=== PATIENT | female | born 1970 | race Caucasian/White ===

== ENCOUNTER → 2020-03-26 09:39 | Outpatient (BNVA) | payer OTHER, SELFPAY | PROVIDERS: PCP Internal Medicine; Visit Provider Physician Assistant | DX: K57.30 Diverticulosis of large intestine without perforation or abscess without bleeding (principal); K59.09 Other constipation | CPT/HCPCS: Q3014 ==

== ENCOUNTER 2020-06-12 10:00 | Day surgery (SDC) | payer OTHER, SELFPAY ==
--- NOTE | 2020-06-11 13:03 | P.CONAN_ITS ---
Documented by User: Erica Santizo 06/11/20 13:04 HPI - Anesthesia Eval Consult details Narrative: 49yo F for Colonoscopy FORMERLY [facility], [facility] Active Problems Active Problems: All Active Problems (Updated 03/26/20 @ 11:27 by Neeta Wyatt PA-C) Chronic constipation (Acute) Diverticulosis large intestine w/o perforation or abscess w/o bleeding (Acute) Past Medical History Medical History (Updated 06/12/20 @ 11:03 by Olimpia Collins) Asthma Chronic constipation Diverticulosis large intestine w/o perforation or abscess w/o bleeding Family History Family History Father No problems noted. Mother Family history of high blood pressure Hx of type 1 diabetes mellitus Hx of diverticulitis of colon Surgical History Surgical History History of appendectomy History of History of hysterectomy Hx of abdominoplasty Hx of cholecystectomy Hx of endoscopy Social History Social History Alcohol intake: current Alcohol intake frequency: holidays/special occasions only Smoking Status: Never smoker Use of substances other than those prescribed or required for medical reasons: No Advance Directives: No Advance Directives Information Provided: Yes Advance Directives on File: No Meds Allergies Allergy/AdvReac Type Severity Reaction Status Date / Time sensitivity to narcotics Allergy Unknown Uncoded 11/19/19 00:00 NARCOTICS AdvReac Unknown NAUSEA,VOMI Uncoded 12/13/19 19:35 TING Home Medications Medication Instructions Recorded Confirmed Last Taken Type cholecalciferol (vitamin D3) 100 100 mcg PO DAILY 03/26/20 Unknown History mcg (4,000 unit) capsule Exam Exam Date and Time: June 11, 2020 1303 Assessment and Plan Assessment Anesthesia Assessment: Chart Reviewed Documented by User: Olimpia Collins 06/12/20 11:03 FOR[facility]LY [facility], [facility] Past Medical History Medical History (Updated 06/12/20 @ 11:03 by Olimpia Collins) Asthma Chronic constipation Diverticulosis large intestine w/o perforation or abscess w/o bleeding Family History Family History Father No problems noted. Mother Family history of high blood pressure Hx of type 1 diabetes mellitus Hx of diverticulitis of colon Family history of problems with anesthesia: No Surgical History Surgical History History of appendectomy History of History of hysterectomy Hx of abdominoplasty Hx of cholecystectomy Hx of endoscopy History of Problems with Anesthesia: Yes (PONV) Social History Social History Alcohol intake: current Alcohol intake frequency: holidays/special occasions only Smoking Status: Never smoker Use of substances other than those prescribed or required for medical reasons: No Advance Directives: No Advance Directives Information Provided: Yes Advance Directives on File: No Meds Allergies Allergy/AdvReac Type Severity Reaction Status Date / Time sensitivity to narcotics Allergy Unknown Uncoded 11/19/19 00:00 NARCOTICS AdvReac Unknown NAUSEA,VOMI Uncoded 12/13/19 19:35 TING Home Medications Medication Instructions Recorded Confirmed Last Taken Type cholecalciferol (vitamin D3) 100 100 mcg PO DAILY 03/26/20 Unknown History mcg (4,000 unit) capsule Exam Height,Weight and Vital Signs: Vital Signs Temp Pulse Resp BP Pulse Ox 06/12/20 10:26 98.0 F 87 18 129/81 97 Airway Mallampati Class: II TM Dist: >3cm Neck ROM: Full Partial: Lower Heart: RRR Lungs: CTAB Assessment and Plan Assessment Anesthesia Assessment: Anesthesia Plan Discussed and Chart Reviewed Final Anesthetic Review NPO: Yes ASA Class: II Final Preanesthetic Review: No Changes in Pt Med Stat, Meds/Allgs Chart Reviewed, Consent Obtained/Reviewed and Anes Risks/Benef Reviewed Patient Risk: Low Procedure Risk: Low Assessment/Block/Sedation in SS: Assess/Block/Sedation-SS Anesthetic Plan Anesthetic Plan: MAC: Disposition: Standard PACU
[2020-06-12 10:13] VITALS: BMI 37.0
[2020-06-12 10:26] VITALS: BP 129/81; PULSE 87; RESP 18; TEMP 36.7; O2SAT 97
[2020-06-12] MEDS: Lactated Ringers 1,000 ML 100 ML IVCONT (10:45)
--- NOTE | 2020-06-12 11:06 | MHC.SHP ---
Pre-Procedural Eval Section B Chief Complaint: diverticulosis Relevant Family History (Specify if Yes): No Relevant Social History: None Present Medications: see Short Stay Collaborative assessment Medical History: Significant History (Asthma Chronic constipation Diverticulosis large intestine w/o perforation or abscess w/o bleeding) History of Previous Operations: Relevant previous surgery/procedure and date(s) (History of appendectomy History of History of hysterectomy Hx of abdominoplasty Hx of cholecystectomy Hx of endoscopy) Allergies: Allergies Allergy/AdvReac Type Severity Reaction Status Date / Time sensitivity to narcotics Allergy Unknown Uncoded 11/19/19 00:00 NARCOTICS AdvReac Unknown NAUSEA,VOMI Uncoded 12/13/19 19:35 TING Review of Systems Sugical H&P ROS: Negative: Constitution, Cardiovascular, Respiratory, Neurological, Psychiatric, Hem-Onc, Allergic/Immunologic, Gastrointestinal, Genitourinary, Musculoskeletal, Integumentary, Endocrine and Eyes/Ears/Nose/Throat Exam Surgical H&P Exam: Normal: HEENT, Normal: Heart, Normal: Lungs, Normal: Extremities, Normal: Abdomen, Normal: Skin and Normal: Neurological Plan Diagnosis/Plan: Unchanged I have reviewed the history and physical and performed a pertinent physical examination on my patient. No changes have occurred unless specified.
--- NOTE | 2020-06-12 11:51 | PM.OP ---
Brief Operative Note Date of Service: 06/12/20 Pre-op diagnosis: constipation Post-op diagnosis: same Procedure: see op note Surgeon: Jaswant Santiago MD Anesthesia: MAC Estimated blood loss (mL): 0 Condition: stable Disposition: PACU
--- NOTE | 2020-06-12 11:51 | W.PM.OPN ---
Operative Note Operative Note Date of Service: 06/12/20 Narrative: Operative Information Procedure Description: Colonoscopy COLONOSCOPY Instrument: Olympus variable stiffness pediatric scope 190L Colonoscopy Monitoring: Vital signs and clinical assessment, continuous EKG monitoring, Pulse oximetry, Carbon Dioxide monitoring and blood pressure monitoring were done throughout the procedure. Colon withdrawal time was 12 minutes. Procedure: The patient was placed in the left lateral decubitis position and pre-procedure medications were administered. After a digital rectal examination of the ano-rectum, the video colonoscope was inserted into the rectum and advanced through the colon to the cecum/TI. The colonoscope was slowly withdrawn in a retrograde panoramic fashion and the colon mucosa was carefully examined including a retroflexed view of the rectum. Findings and interventions are described below. Procedure Difficulty: easy Findings: Terminal Ileum-normal Cecum:normal Ascending Colon: normal Transverse Colon -normal Descending Colon:normal Sigmoid Colon: scattered small diverticula noted Rectum: Retroflexion with small internal hemorrhoids, grade I, x 2 rectal biopsy samples taken using cold snare by creating pseudopolyp and forceps for staining for ganglion cells Anorectum - normal Colon preparation: [place] Bowel Preparation Scale Right colon; 3 Transverse colon: 3 Left colon; 3 (0 = Unprepared colon segment with mucosa not seen due to solid stool that cannot be cleared. 1 = Portion of mucosa of the colon segment seen, but other areas of the colon segment not well seen due to staining, residual stool and/or opaque liquid. 2 = Minor amount of residual staining, small fragments of stool and/or opaque liquid, but mucosa of colon segment seen well. 3 = Entire mucosa of colon segment seen well with no residual staining, small fragments of stool or opaque liquid) Impression and Post Procedure Diagnosis: internal hemorrhoids diverticular disease Plan: High fiber diet leaflet Avoid straining at stool, epsom salts and sitz bath, anusol supps or cream as needed Repeat Colonoscopy in 10 years or earlier if clinically indicated Above findings were reviewed with the patient and relevant handouts were provided if indicated.
[2020-06-12 11:56] VITALS: BP 98/62; PULSE 81; RESP 16; TEMP 36.4; O2SAT 99
[2020-06-12 12:12] VITALS: BP 120/78; PULSE 76; RESP 17; O2SAT 98
[2020-06-12 12:15] VITALS: BP 120/78; PULSE 71; RESP 17; TEMP 36.4; O2SAT 99
== END 2020-06-12 13:19 | disposition home or self-care (01) ==
PROVIDERS: PCP Internal Medicine; Visit Provider Internal Medicine Gastroenterology
PROC: 0DJD8ZZ Inspection of Lower Intestinal Tract, Via Natural or Artificial Opening Endoscopic (ICD-10-PCS; CPT 45378; principal; 2020-06-12 11:10)
DX: K59.09 Other constipation (principal); K57.30 Diverticulosis of large intestine without perforation or abscess without bleeding; K64.0 First degree hemorrhoids; J45.909 Unspecified asthma, uncomplicated; Z79.899 Other long term (current) drug therapy; Z90.49 Acquired absence of other specified parts of digestive tract
CPT/HCPCS: 45385; 45380; 88305; 88342; J2405

== ENCOUNTER → 2020-06-26 10:07 | Outpatient (BNVA) | payer OTHER, SELFPAY | PROVIDERS: PCP Internal Medicine; Visit Provider Physician Assistant | DX: K59.09 Other constipation (principal) | CPT/HCPCS: Q3014 ==

== ENCOUNTER → 2022-01-14 07:19 | Outpatient (BNVA) | payer OTHER, SELFPAY | PROVIDERS: PCP Internal Medicine; Referring Provider Internal Medicine; Visit Provider Physician Assistant | DX: K59.09 Other constipation (principal) | CPT/HCPCS: 99212 ==

== ENCOUNTER 2023-01-18 08:26 | Outpatient (AMB) | payer OTHER, SELFPAY ==
--- NOTE | 2023-01-18 08:30 | MHC.OFFVIS ---
Intake Vital Signs 01/18/23 08:44 Height 5 ft 4 in Weight 213 lb BMI 36.6 BP 126/68 Blood Pressure Location Lt brachial Position Sitting Pulse 82 Intake Visit Reasons: h pylori bacteria Intake Note: Patient follow p for H pylori bacteria. Patient cc: abdominal pain and discomfort with everything that she ate, gassy, acid reflex with burning sensation, swallowing problems and constipation. Administrative Support Specialist Required: No Accompanied by: Self / Same As Patient Allergies sensitivity to narcotics Allergy (Intermediate, Uncoded 06/26/20 10:08) Vomiting NARCOTICS Adverse Reaction (Unknown, Uncoded 12/13/19 19:35) NAUSEA,VOMITING Medication List - Last Reconciled 01/18/23 by Neeta Wyatt PA-C bisacodyl (Dulcolax (bisacodyl)) 10 mg [place] DAILY PRN calcium polycarbophil (Fiber Laxative (calcium polycarbophil)) 1,250 mg (2 x 625 mg) PO DAILY 30 days cholecalciferol (vitamin D3) 100 mcg PO DAILY docusate sodium (Colace) 200 mg (2 x 100 mg) PO BEDTIME famotidine 40 mg PO DAILY PRN methylcellulose (laxative) (Citrucel) 500 mg PO TID pantoprazole 40 mg PO DAILY polyethylene glycol 3350 (Miralax) 17 grams PO DAILY sennosides (senna) 8.6 mg PO DAILY simethicone (Gas Relief (simethicone)) 125 mg PO TID-QID PRN HPI HPI Comments History of Present Illness Details 52-year-old female history of H pylori and treated years ago at [facility]-. 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.- Review of Systems Const All systems reviewed & are unremarkable except as noted in HPI and below Card Denies chest pain and Denies dyspnea Resp Denies dyspnea GI Denies abdominal pain, Denies hematochezia, Reports constipation, Reports heartburn, Denies nausea and Denies vomiting Physical Exam Vital Signs: Last Vital Signs Pulse 82 01/18/23 08:44 BP 126/68 01/18/23 08:44 BMI result Body Mass Index 36.6 Const General: cooperative, healthy appearing, comfortable and no acute distress Orientation/consciousness: patient oriented x3 Limitations: no limitations Eyes Sclerae: sclerae normal Resp Effort & Inspection: normal respiratory effort and able to speak in complete sentences Auscultation: clear to auscultation bilaterally, no rales, no rhonchi and no wheezes Cardio Rate: regular rate Rhythm: regular rhythm Heart sounds: S1 normal heart sound present and S2 normal heart sound present GI Palpation (GI): Soft to palpation and nontender Auscultation: normal bowel sounds Skin General skin exam: no rashes or lesions noted Neuro General: patient oriented x3 Extrem General: Yes full ROM Psych Appearance: grossly normal and well kempt Mental Status: mental status grossly normal Speech and movement: Normal speech and movement present and Clear speech present Affect: normal affect Attitude: cooperative Thought content: Normal thought content present Results Reviewed Results Reviewed: Attending Dr: Jaswant Santiago MD cc: Jaswant Santiago MD; SOCORRO STEWART MD~ Operative Note Operative Note Date of Service: 06/12/20 Narrative: Operative Information Procedure Description: Colonoscopy COLONOSCOPY Instrument: Olympus variable stiffness pediatric scope 190L Colonoscopy Monitoring: Vital signs and clinical assessment, continuous EKG monitoring, Pulse oximetry, Carbon Dioxide monitoring and blood pressure monitoring were done throughout the procedure. Colon withdrawal time was 12 minutes. Procedure: The patient was placed in the left lateral decubitis position and pre-procedure medications were administered. After a digital rectal examination of the ano-rectum, the video colonoscope was inserted into the rectum and advanced through the colon to the cecum/TI. The colonoscope was slowly withdrawn in a retrograde panoramic fashion and the colon mucosa was carefully examined including a retroflexed view of the rectum. Findings and interventions are described below. Procedure Difficulty: easy Findings: Terminal Ileum-normal Cecum:normal Ascending Colon: normal Transverse Colon -normal Descending Colon:normal Sigmoid Colon: scattered small diverticula noted Rectum: Retroflexion with small internal hemorrhoids, grade I, x 2 rectal biopsy samples taken using cold snare by creating pseudopolyp and forceps for staining for ganglion cells Anorectum Impression and Post Procedure Diagnosis: internal hemorrhoids diverticular disease Plan: High fiber diet leaflet Avoid straining at stool, epsom salts and sitz bath, anusol supps or cream as needed Repeat Colonoscopy in 10 years or earlier if clinically indicated Assessment & Plan Assessment & Plan (1) Acid reflux: Comment: Reviewed EGD [id number] r/o HP-famotidine 40 mg daily as well as Tums-discontinue famotidine 2 days prior to H pylori test Code(s): K21.9 - Gastro-esophageal reflux disease without esophagitis (2) Chronic constipation: Comment: Maintain consistent bowel regimen, high-fiber diet, well hydrated Reviewed colonoscopy from 2021-no polyps Code(s): K59.09 - Other constipation (3) Helicobacter pylori (H. 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[employer] Code(s): A04.8 - Other specified bacterial intestinal infections Plan: H pylori stool antigen-2 weeks- await results, if positive will treat Plan r/o HP-famotidine 40 mg daily as well as Tums-discontinue famotidine 2 days prior to H pylori test Orders: Orders H pylori Ag Stool Today A04.8 - Other specified bacterial intestinal infections Medications: New calcium polycarbophil (Fiber Laxative (calcium polycarbophil)) 1,250 mg (2 x 625 mg) PO DAILY 30 days 60 tabs 3RF polyethylene glycol 3350 (Miralax) 17 grams PO DAILY 30 days 510 grams 6RF famotidine D/C 2 days prior to H.pylori test 40 mg PO DAILY PRN 30 tabs 5RF heart burn bisacodyl (Dulcolax (bisacodyl)) 10 mg MT DAILY PRN 20 ea 0RF constipation Patient Instructions: Reviewed EGD [id number] r/o HP-meanwhile she will take famotidine 40 mg daily as well as Tums-for 2 weeks then submit sample for H pylori discontinue famotidine 2 days prior to H pylori test-with if positive will treat Reflux precautions reviewed-avoid culprits, remain upright 2-3 hours after eating especially evening male-famotidine and Tums until H pylori testing submit chronic constipation, consistent bowel regimen maintain high-fiber diet fiber supplement Opportunity for questions, we will see her back in follow-up for progress. Coding Level of Care Code Est Pt Level 4 (98480) Diagnoses Acid reflux K21.9 Chronic constipation K59.09 Helicobacter pylori (H. pylori) A04.8 Time Spent (min) 35
[2023-01-18 08:44] VITALS: BP 126/68; PULSE 82; BMI 36.6
== END 2023-01-18 09:40 | disposition home or self-care (01) ==
PROVIDERS: PCP Internal Medicine; Visit Provider Physician Assistant
DX: K21.9 Gastro-esophageal reflux disease without esophagitis (principal); K59.09 Other constipation; A04.8 Other specified bacterial intestinal infections
CPT/HCPCS: 99214

== ENCOUNTER → 2023-01-18 08:26 | Outpatient (BNVA) | payer OTHER, SELFPAY | PROVIDERS: PCP Internal Medicine; Visit Provider Physician Assistant | DX: A04.8 Other specified bacterial intestinal infections (principal); K59.09 Other constipation; K21.9 Gastro-esophageal reflux disease without esophagitis | CPT/HCPCS: 99212 ==

== ENCOUNTER 2023-01-31 12:35 | Outpatient (REF) | payer OTHER, SELFPAY | END 2023-01-31 12:36 | disposition home or self-care (01) | LOC: HO.LNP 12:35 | PROVIDERS: Visit Provider Physician Assistant | DX: A04.8 Other specified bacterial intestinal infections (principal) | CPT/HCPCS: 87338 ==

== ENCOUNTER 2023-02-09 08:24 | Outpatient (AMB) | payer OTHER, SELFPAY ==
--- NOTE | 2023-02-09 08:31 | A.OFFVIS_ITS ---
Intake Vital Signs 02/09/23 08:39 Height 5 ft 4 in Weight 213 lb BMI 36.6 BP 112/73 Blood Pressure Location Lt brachial Position Sitting Pulse 89 Intake Visit Reasons: 1 month follow up Intake Note: Patient follow up for abdominal discomfort. Patient cc: abdominal discomfort, gassy with bad odor but with obstruction, constipation with some blood on and off, and some swallowing problems. Souvenir And Novelty Maker Required: No Accompanied by: Self / Same As Patient Allergies sensitivity to narcotics Allergy (Intermediate, Uncoded 06/26/20 10:08) Vomiting NARCOTICS Adverse Reaction (Unknown, Uncoded 12/13/19 19:35) NAUSEA,VOMITING Medication List - Last Reconciled 02/09/23 by Neeta Wyatt PA-C bisacodyl (Dulcolax (bisacodyl)) 10 mg [place] DAILY PRN bisacodyl (Dulcolax (bisacodyl)) 10 mg [place] DAILY PRN calcium polycarbophil (Fiber Laxative (calcium polycarbophil)) 1,250 mg (2 x 625 mg) PO DAILY 30 days cholecalciferol (vitamin D3) 100 mcg PO DAILY docusate sodium (Colace) 200 mg (2 x 100 mg) PO BEDTIME methylcellulose (laxative) (Citrucel) 500 mg PO TID pantoprazole 40 mg PO DAILY polyethylene glycol 3350 (Miralax) 17 grams PO DAILY polyethylene glycol 3350 (Miralax) 17 grams PO DAILY 30 days sennosides (senna) 8.6 mg PO DAILY simethicone (Gas Relief (simethicone)) 125 mg PO TID-QID PRN HPI HPI Comments History of Present Illness0 Details With year old female follows up with acid reflux she eats late at night, has gained weight= she is frustrated however acid reflux seems worse at night after eating late she is considering in diet changes she has occassional hemorrhoids- if she strains- following regimen in much improved No nausea, vomiting, hematemesis, hematochezia fever chills PFSH Medical History (Updated 02/09/23 @ 13:40 by Neeta Wyatt PA-C) Asthma Chronic constipation Diverticulosis large intestine w/o perforation or abscess w/o bleeding Surgical History Hx of abdominoplasty History of hysterectomy Hx of cholecystectomy History of appendectomy History of Hx of endoscopy Family History Father No problems noted. 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.- Review of Systems Const All systems reviewed & are unremarkable except as noted in HPI and below Card Denies chest pain and Denies dyspnea Resp Denies dyspnea GI Reports constipation (improved with regimen), Reports heartburn (wt gain, ), Denies loose stools and Denies nausea Physical Exam Vital Signs: Last Vital Signs Pulse 89 02/09/23 08:39 BP 112/73 02/09/23 08:39 BMI result Body Mass Index 36.6 Const General: cooperative, healthy appearing, comfortable and no acute distress Orientation/consciousness: patient oriented x3 Limitations: no limitations Eyes Sclerae: sclerae normal Resp Effort & Inspection: normal respiratory effort and able to speak in complete sentences Cardio Rate: regular rate Neuro General: patient oriented x3 Extrem General: Yes full ROM Psych Appearance: grossly normal and well kempt Mental Status: mental status grossly normal Speech and movement: Normal speech and movement present Affect: normal affect Attitude: cooperative Thought process: Normal thought process present Thought content: Normal thought content present Results Reviewed Results Reviewed: 06/12/20 Dr Santiago Findings: Terminal Ileum-normal Cecum:normal Ascending Colon: normal Transverse Colon -normal Descending Colon:normal Sigmoid Colon: scattered small diverticula noted Rectum: Retroflexion with small internal hemorrhoids, grade I, x 2 rectal biopsy samples taken using cold snare by creating pseudopolyp and forceps for staining for ganglion cells Anorectum Impression and Post Procedure Diagnosis: internal hemorrhoids diverticular disease Plan: High fiber diet leaflet Avoid straining at stool, epsom salts and sitz bath, anusol supps or cream as needed Repeat Colonoscopy in 10 years or earlier if clinically indicated Assessment & Plan Assessment & Plan (1) Chronic constipation: Comment: Maintain consistent bowel regimen, high-fiber diet, well hydrated Reviewed colonoscopy from 2020-hemorrhoids, divertic, no polyps Code(s): K59.09 - Other constipation Plan: Reviewed colonoscopy report (2) Acid reflux: Comment: Reviewed EGD from 01/2023-HP - neg Code(s): K21.9 - Gastro-esophageal reflux disease without esophagitis (3) Hemorrhoids: Comment: Offer surgical refer Code(s): K64.9 - Unspecified hemorrhoids Plan: Avoid straining hydrocortisone Plan reflux precautions reviewed cont ppi avoid culprit Medications: New hydrocortisone 2.5% (Proctosol HC) 1 appl [place] BEDTIME PRN 30 grams 3RF hemorrhoids Patient Instructions: reflux precautions reviewed Dietary lifestyle modification would be beneficial cont ppi Avoid culprits Maintain high-fiber diet Avoid straining with hemorrhoid Hydrocortisone cream With declined surgical consult, she will call if she reconsiders Coding Level of Care Code Est Pt Level 3 (71446) Diagnoses Chronic constipation K59.09 Acid reflux K21.9 Hemorrhoids K64.9 Time Spent (min) 30
[2023-02-09 08:39] VITALS: BP 112/73; PULSE 89; BMI 36.6
== END 2023-02-09 09:51 | disposition home or self-care (01) ==
PROVIDERS: PCP Internal Medicine; Visit Provider Physician Assistant
DX: K59.09 Other constipation (principal); K21.9 Gastro-esophageal reflux disease without esophagitis; K64.9 Unspecified hemorrhoids
CPT/HCPCS: 99213

== ENCOUNTER → 2023-02-09 08:24 | Outpatient (BNVA) | payer OTHER, SELFPAY | PROVIDERS: PCP Internal Medicine; Visit Provider Physician Assistant | DX: K57.30 Diverticulosis of large intestine without perforation or abscess without bleeding (principal); K59.09 Other constipation; K64.9 Unspecified hemorrhoids; K21.9 Gastro-esophageal reflux disease without esophagitis; Z90.49 Acquired absence of other specified parts of digestive tract | CPT/HCPCS: 99212 ==

== ENCOUNTER 2023-06-02 08:19 | Outpatient (AMB) | payer OTHER, SELFPAY ==
[2023-06-02 08:27] VITALS: BMI 36.6
--- NOTE | 2023-06-02 08:27 | MHC.OFFVIS ---
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 The patient states that she underwent right shoulder arthroscopic surgery approximately 5 years ago. She re-injured her shoulder 1 year ago while lifting heavy object. Since that time she has had difficulty lifting her right hand above shoulder height. She has had multiple cortisone injections in the past which gave her temporary relief. She has also done physical therapy which aggravated her pain. She has tried Tylenol and anti-inflammatory medicines which gave her minimal relief. Allergies sensitivity to narcotics Allergy (Intermediate, Uncoded 06/26/20 10:08) Vomiting NARCOTICS Adverse Reaction (Unknown, Uncoded 12/13/19 19:35) NAUSEA,VOMITING Medication List - Last Reconciled 06/02/23 by Alirio Guo MD bisacodyl (Dulcolax (bisacodyl)) 10 mg NC DAILY PRN calcium polycarbophil (Fiber Laxative (calcium polycarbophil)) 1,250 mg (2 x 625 mg) PO DAILY 30 days cholecalciferol (vitamin D3) 100 mcg PO DAILY docusate sodium (Colace) 200 mg (2 x 100 mg) PO BEDTIME hydrocortisone 2.5% (Proctosol HC) 1 appl NC BEDTIME PRN methylcellulose (laxative) (Citrucel) 500 mg PO TID pantoprazole 40 mg PO DAILY polyethylene glycol 3350 (Miralax) 17 grams PO DAILY sennosides (senna) 8.6 mg PO DAILY simethicone (Gas Relief (simethicone)) 125 mg PO TID-QID PRN PFSH Medical History (Updated 06/01/23 @ 09:42 by Alirio Guo MD) Asthma Chronic constipation Diverticulosis large intestine w/o perforation or abscess w/o bleeding Surgical History (Updated 06/02/23 @ 08:34 by Aniyah Jesus CMA) Hx of shoulder surgery (~02/25/20) Hx of abdominoplasty History of hysterectomy Hx of cholecystectomy History of appendectomy History of Hx of endoscopy Family History Father No problems noted. 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 Physical Exam Vital Signs: BMI result Body Mass Index 36.6 Const Other: Well-nourished well-developed very friendly female awake alert and oriented x3 in no acute distress Extrem Other: Bilateral upper extremity examination shows good capillary refill, no skin lesions noted, normal sensation light touch Right shoulder examination shows decreased active range of motion when compared to her left shoulder, 4+ out of 5 strength with supraspinatus testing, positive impingement signs, no instability Results Reviewed Results Reviewed: X-rays of the patient's right shoulder show mild acromioclavicular joint narrowing, a type 2 acromion, no acute bony abnormalities Assessment & Plan Assessment & Plan (1) Right shoulder pain: Code(s): M25.511 - Pain in right shoulder Plan Ms. Hannah presents with progressively worsening right shoulder pain and weakness possibly due to a full-thickness rotator cuff tear. Thus, I will send the patient for an MRI of her right shoulder for further evaluation. I will see her back once the MRI is completed to discuss the findings and treatment options. Feel free to call me at any time should questions regarding her orthopedic management arise. I spent 22 minutes in reviewing the patient's records and imaging studies, seeing the patient and documenting in the medical record. Orders: Orders XR shoulder RT min 2V Today M25.511 - Pain in right shoulder MR shoulder RT wo con Today M25.511 - Pain in right shoulder Coding Level of Care Code New Pt Level 2 (82782) Diagnoses Right shoulder pain M25.511
== END 2023-06-02 08:50 | disposition home or self-care (01) ==
PROVIDERS: PCP Internal Medicine; Visit Provider Orthopaedic Surgery
DX: M25.511 Pain in right shoulder (principal)
CPT/HCPCS: 99202

== ENCOUNTER 2023-06-02 09:31 | Outpatient (REF) | payer OTHER, SELFPAY ==
--- NOTE | ~2023-06-02 | XR_ITS ---
EXAMINATION: XR SHOULDER, RIGHT CLINICAL INFORMATION: Pain in right shoulder COMPARISON: None available. TECHNIQUE: AP neutral and scapular Y of the right shoulder. FINDINGS: The bones are intact. No fracture. Glenohumeral and acromioclavicular alignment is anatomic. The glenohumeral joint space is intact. There is marked widening of the acromioclavicular joint with question of prior resection of the distal clavicle. No abnormal soft tissue calcifications. XR/XR shoulder RT min 2V IMPRESSION: 1. No acute bony abnormality. 2. Marked widening of the acromioclavicular joint with question of prior resection of the distal clavicle.
== END 2023-06-02 09:32 | disposition home or self-care (01) ==
LOC: HO.HOSX 09:31
PROVIDERS: Visit Provider Orthopaedic Surgery
DX: M25.511 Pain in right shoulder (principal); Z79.899 Other long term (current) drug therapy
CPT/HCPCS: 73030; 99202

== ENCOUNTER 2023-06-14 11:42 | Outpatient (AMB) | payer OTHER, SELFPAY ==
[2023-06-14 11:43] VITALS: BMI 36.6
--- NOTE | 2023-06-14 11:43 | MHC.OFFVIS ---
Intake Vital Signs 06/14/23 11:43 Height 5 ft 4 in Weight 213 lb BMI 36.6 Intake Visit Reasons: OV- MRI REVIEW RT SHOULDER Intake Note: Celia is a 52 year old female who presents for her MRI review of her Right shoulder. The patient describes her pain as achy in nature. Most of the discomfort is along the lateral aspect of her shoulder. She has taken Tylenol which gives her mild relief. She continues with her home stretching program. Allergies sensitivity to narcotics Allergy (Intermediate, Uncoded 06/26/20 10:08) Vomiting NARCOTICS Adverse Reaction (Unknown, Uncoded 12/13/19 19:35) NAUSEA,VOMITING Medication List - Last Reconciled 06/14/23 by Alirio Guo MD bisacodyl (Dulcolax (bisacodyl)) 10 mg HI DAILY PRN calcium polycarbophil (Fiber Laxative (calcium polycarbophil)) 1,250 mg (2 x 625 mg) PO DAILY 30 days cholecalciferol (vitamin D3) 100 mcg PO DAILY docusate sodium (Colace) 200 mg (2 x 100 mg) PO BEDTIME hydrocortisone 2.5% (Proctosol HC) 1 appl HI BEDTIME PRN methylcellulose (laxative) (Citrucel) 500 mg PO TID pantoprazole 40 mg PO DAILY polyethylene glycol 3350 (Miralax) 17 grams PO DAILY sennosides (senna) 8.6 mg PO DAILY simethicone (Gas Relief (simethicone)) 125 mg PO TID-QID PRN PFSH Medical History Asthma Chronic constipation Diverticulosis large intestine w/o perforation or abscess w/o bleeding Surgical History Hx of shoulder surgery (~02/25/20) Hx of abdominoplasty History of hysterectomy Hx of cholecystectomy History of appendectomy History of Hx of endoscopy Family History Father No problems noted. 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 Physical Exam Vital Signs: BMI result Body Mass Index 36.6 Const Other: Well-nourished well-developed very friendly female awake alert and oriented x3 in no acute distress Extrem Other: Bilateral upper extremity examination shows good capillary refill, no skin lesions noted, normal sensation light touch Right shoulder examination shows almost full range of motion when compared to her left shoulder, 5/5 strength with supraspinatus testing, mild discomfort with resisted forward flexion, no instability Results Reviewed Results Reviewed: MRI of the patient's right shoulder shows signal change within the supraspinatus tendon most likely due to rotator cuff tendinosis, no rotator cuff tearing noted Assessment & Plan Assessment & Plan (1) Right shoulder pain: Code(s): M25.511 - Pain in right shoulder Plan Ms. Hannah presents with intermittent right shoulder discomfort due to rotator cuff tendinosis. I had a lengthy discussion with the patient regarding the treatment options. At this point the patient's symptoms are tolerable to her. She will continue with her activity modifications. She will follow up with me on an as-needed basis should her symptoms worsen in any way. Feel free to call me at any time should questions regarding her orthopedic management arise. I spent 19 minutes in reviewing the patient's records and imaging studies, seeing the patient and documenting in the medical record. Coding Level of Care Code Est Pt Level 2 (64937) Diagnoses Right shoulder pain M25.511
== END 2023-06-14 12:05 | disposition home or self-care (01) ==
PROVIDERS: PCP Internal Medicine; Visit Provider Orthopaedic Surgery
DX: S46.001A Unspecified injury of muscle(s) and tendon(s) of the rotator cuff of right shoulder, initial encounter (principal)
CPT/HCPCS: 99212

== ENCOUNTER → 2023-06-14 11:42 | Outpatient (BNVA) | payer OTHER, SELFPAY | PROVIDERS: PCP Internal Medicine; Visit Provider Orthopaedic Surgery | DX: M25.511 Pain in right shoulder (principal) | CPT/HCPCS: 99212 ==

== ENCOUNTER 2024-06-08 07:57 | Outpatient (AMB) | payer OTHER, SELFPAY ==
--- NOTE | 2024-06-08 07:59 | MHC.OFFVIS ---
Vital Signs 06/08/24 08:14 Height 5 ft 4 in Weight 220 lb 14.451 oz BMI 37.9 BP 158/72 H Blood Pressure Location Rt brachial Position Sitting Pulse 94 Pulse Source Pulse Oximeter Intake Visit Reasons: GERD/[facility] pt [facility] 01/2023 Intake Note: ESTABLISHED PATIENT for GERD mgmt, re-est care. [facility] 2022 w/ JM Chief Complaint; C/O GERD, nausea w/o vomiting, LUQ pain / GI upset. Pt denies any additional concerns at this time. Pt confirms taking pantoprazole qAM. Roadway Technician Required: No Accompanied by: Self / Same As Patient Allergies NARCOTICS Adverse Reaction (Unknown, Uncoded 06/08/24 08:00) NAUSEA,VOMITING HPI HPI GERD/[facility] pt [facility] 01/2023: Details: LAST VISIT: reflux precautions reviewed Dietary lifestyle modification would be beneficial cont ppi Avoid culprits Maintain high-fiber diet Avoid straining with hemorrhoid Hydrocortisone cream With declined surgical consult, she will call if she reconsiders TODAY'S VISIT: Patient is here today to reestablish care. Previously seen by Chichi Wyatt. Patient continues with abdominal bloating. Patient is taking Zepbound for weight loss. Patient reports epigastric pain postprandially. Only able to eat small amounts. Patient reports severe abdominal bloating and cramping. Acid reflux severe with acid coming up all the way to her throat. Patient reports lower abdominal cramping. Patient reports constipation, took MiraLax with minimal results. Small pebble like stool 1st and then diarrhea water like. No normal stool for a long time. Denies melena, hematochezia, unintentional weight loss or ribbon like stools. Denies any dyspepsia, dysphagia or odynophagia [facility] Medical History Asthma Chronic constipation Diverticulosis large intestine w/o perforation or abscess w/o bleeding Surgical History Hx of shoulder surgery (~02/25/20) Hx of abdominoplasty History of hysterectomy Hx of cholecystectomy History of appendectomy History of Hx of endoscopy Family History Father No problems noted. 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 Review of Systems Const Denies weight gain and Denies weight loss ENT Reports no additional complaints, Denies dysphagia and Denies odynophagia Card Reports no additional complaints Resp Reports no additional complaints GI Reports abdominal pain, Denies belching, Denies melena, Reports bloating, Denies change in bowel habits, Reports constipation, Denies dysphagia, Denies excessive flatus, Denies dyspepsia, Reports heartburn, Denies diarrhea, Reports loose stools, Denies nausea, Denies odynophagia and Denies vomiting Reports no additional complaints Musc Reports no additional complaints Neuro Reports no additional complaints Psych Reports no additional complaints Endo Reports no additional complaints Physical Exam Vital Signs: Last Vital Signs Pulse 94 06/08/24 08:14 BP 158/72 H 06/08/24 08:14 BMI result Body Mass Index 37.9 Const General: healthy appearing and no acute distress Nutritional Appearance: obese Orientation/consciousness: patient oriented x3 Resp Effort & Inspection: normal respiratory effort, able to speak in complete sentences, no tracheal deviation and symmetric chest movement Auscultation: clear to auscultation bilaterally Cardio Rate: regular rate GI Inspection: Yes normal to inspection, No distended and Yes obesity Palpation (GI): Soft to palpation, not firm, nontender and No hepatosplenomegaly present Auscultation: normal bowel sounds General: Yes no CVA tenderness Back/Spine/Pelvis Back: no CVA tenderness Skin General skin exam: elasticity normal, turgor normal and dry skin Neuro General: patient oriented x3 Psych Appearance: grossly normal Mental Status: mental status grossly normal Assessment & Plan Assessment & Plan (1) Chronic constipation: Code(s): K59.09 - Other constipation Category: Medical (2) Acid reflux: Comment: Reviewed EGD from 01/2023-[facility] - neg Code(s): K21.9 - Gastro-esophageal reflux disease without esophagitis Category: Medical Qualifiers: Esophagitis presence: esophagitis presence not specified Qualified Code(s): K21.9 - Gastro-esophageal reflux disease without esophagitis (3) Postprandial abdominal bloating: Code(s): R14.0 - Abdominal distension (gaseous) (4) Abdominal pain: Code(s): R10.9 - Unspecified abdominal pain Qualifiers: Abdominal location: lower abdomen, unspecified Qualified Code(s): R10.30 - Lower abdominal pain, unspecified Plan Will send patient for upper GI series with barium swallow. Patient will stop pantoprazole and start taking Nexium. Avoid dietary triggers and late night snacking. Staying upright for minimum 3 hours after meals discussed with patient. Patient will start taking Dulcolax daily. Increase fluid intake and activity to promote better bowel motility. Patient will follow-up in 3 months, sooner on as needed basis. She is agreeable to this plan and verbalizes understanding of instructions. She was given the opportunity to ask questions and all questions answered. Thank you for allowing me to participate in her care Orders: Orders FL upper GI small bowel Today R13.10 - Dysphagia, unspecified Medications: New bisacodyl (Dulcolax (bisacodyl)) 10 mg (2 x 5 mg) PO BEDTIME 60 tabs 4RF esomeprazole magnesium (Nexium) 40 mg PO DAILY 30 caps 2RF K21.9 - Gastro-esophageal reflux disease without esophagitis famotidine (Pepcid) 20 mg PO BEDTIME 30 tabs 3RF K21.9 - Gastro-esophageal reflux disease without esophagitis Discontinued bisacodyl (Dulcolax (bisacodyl)) Discontinued Reason: Patient Completed Course 10 mg WI DAILY PRN 20 ea 0RF constipation pantoprazole Discontinued Reason: Doctor's Order 40 mg PO DAILY 90 tabs 3RF Coding Level of Care Code Est Pt Level 4 (09605) Complex EM visit Add On G2211 Diagnoses Chronic constipation K59.09 Gastroesophageal reflux disease, unspecified whether esophagitis present K21.9 Esophagitis presence: esophagitis presence not specified Postprandial abdominal bloating R14.0 Lower abdominal pain R10.30 Abdominal location: lower abdomen, unspecified Time Spent (min) 40 Comment 25 minutes spent with patient and additional 15 minutes spent reviewing her records
--- OUTSIDE RECORDS SUMMARY | 2024-06-08 08:00 | XMS_ITS | Encounter Summary ---
Author Organization [facility] Address [address] [place] [address] Care Team Providers Care Brick Offbearer Name Role Phone Carlos Michaud MD Primary Care Provider Unavail able Isaac Raphael MD Primary Care Provider [phone] Delfina Natarajan MD Primary Care Provider Unavailabl e Isaac Raphael MD Primary Care Provider [phone] Anirudh Patiño MD, PHD Unavailable Unava ilable Kris Garcia MD Unavailable Natalia Irizarry PA-C Primary Care Provider + Reason for Visit * Reason Onset Date Comments Medical Records 09/13/2017 [facility] nter-Diagnostic Imaging Department Encounter Details Date Type Department Care Team Description 09/13/2017 Telephone Gastroenterology - [address] [address] Parag Robles MD Medical Records ([facility]-Diagnostic Imaging Department) Social History Tobacco Use Types Packs/Day Years Used Date Smoking Tobacco: Former Cigarettes Q uit: 03/28/1998 Smokeless Tobacco: Former Alcohol Use Standard Drinks/Week Comments No 0 (1 standard drink = 0.6 oz pur e alcohol) Sex Assigned at Date Recorded Female 09/06/2022 9:59 PM E DT Job Start Date Occupation Industry Not on file Not on file Not on file documented as of this encounter Miscellaneous Notes * Telephone Encounter - Dara Silveira - 09/13/2017 2:18 PM EDT [facility] - Barium Swallow results received and placed in Dr. Robles in box. documented in this encounter Plan of Treatment Not on file documented as of this encounter Visit Diagnoses Not on filedocumented in this encounter Care Teams Brick Offbearer Relationship Specialty Start Date End Date Carlos Michaud MD PCP - General Internal Medicine 08/04/11 03/01/18 Isaac Raphael MD PCP - General Internal Medicine 03/02/18 01/31/20 Delfina Natarajan MD PCP - General Family Practice 02/01/20 03/11/20 Isaac Raphael MD PCP - General Internal Medicine 03/12/20 04/19/23 Natalia Irizarry PA-C PCP - General Internal Medicine 04/20/23 Anirudh Patiño MD, PHD Surgeon Neurosurgery 03/03/21 Kris Garcia MD Specialist Cardiology 03/26/21 documented as of this encounter
--- OUTSIDE RECORDS SUMMARY | 2024-06-08 08:00 | XMS_ITS | Encounter Summary ---
Author Organization [facility] Address [address] [place] [address] Care Team Providers Care Floor Sanding Machine Operator Name Role Phone Carlos Michaud MD Primary Care Provider Unavail able Isaac Raphael MD Primary Care Provider [phone] Delfina Natarajan MD Primary Care Provider Unavailabl e Isaac Raphael MD Primary Care Provider [phone] Anirudh Patiño MD, PHD Unavailable Unava ilable Kris Garcia MD Unavailable Natalia Irizarry PA-C Primary Care Provider + Encounter Details Date Type Department Care Team Description 07/03/2015 Tool Mechanic Report Medical Records [address] [place] [id number] Abstract, Provider Social History Tobacco Use Types Packs/Day Years [...] on file documented as of this encounter Plan of Treatment Not on file documented as of this encounter Visit Diagnoses Not on filedocumented in this encounter Care Teams Floor Sanding Machine Operator Relationship Specialty Start Date End Date Carlos [...]
--- OUTSIDE RECORDS SUMMARY | 2024-06-08 08:00 | XMS_ITS | Encounter Summary ---
Author Organization [facility] Address [address] [place] [address] Care Team Providers Care Nurse Sane Name Role Phone Carlos Michaud MD Primary Care Provider Unavail able Isaac Raphael MD Primary Care Provider [phone] Delfina Natarajan MD Primary Care Provider Unavailabl e Isaac Raphael MD Primary Care Provider [phone] Anirudh Patiño MD, PHD Unavailable Unava ilable Kris Garcia MD Unavailable Natalia Irizarry PA-C Primary Care Provider + Encounter Details Date Type Department Care Team Description 09/04/2014 Hereditary Cancer Qu iz Results Medical Records [address] [place] [address] Abstract, Provider Social History Tobacco Use Types [...] on filedocumented in this encounter Care Teams Nurse Sane Relationship Specialty Start Date End Date Carlos [...]
--- OUTSIDE RECORDS SUMMARY | 2024-06-08 08:00 | XMS_ITS | Encounter Summary ---
Author Organization [facility] Address [address] [place] [address] Care Team Providers Care Director Of Residence Life Name Role Phone Anirudh Patiño MD, PHD Unavailable Unava ilable Kris Garcia MD Unavailable Natalia Irizarry PA-C Primary Care Provider + Reason for Visit * Reason Onset Date Comments Prior Authorization 01/26/2024 Encounter Details Date Type Department Care Team Description 01/26/2024 Telephone Pulmonology - [place] [address] [facility] [address] [place] [address] Rafita Sigala MD [address] [place] [id number] Prior Authorization Social History Tobacco Use Types Packs/Day Years [...] encounter Miscellaneous Notes * Telephone Encounter - Shad Mullins CMA - 01/27/2024 9:45 AM EDT ANALY yesterday. * Telephone Encounter - Manuelito Gonzales - 01/26/2024 1:20 PM EDT Prior Authorization for Medication-do not complete and send this encounter unless you have the fax from the pharmacy. Is this a Cover My Meds request: Yes -- Castaneda Code [id number] Name of Medication FLUTICASONE PROPIONATE HFA Dose of Medication 100 MCG/ACT What is the RX # from the faxed refill? How does patient take this med? Aerosol What Pharmacy did the fax come from: [facility] pharmacy Pharmacy fax #: [phone] [employer] Information from fax: What Prescription Plan does the patient have? BIN/PCN if applicable: Cardholder ID: Person Code: Relationship Code: Help desk phone: [phone] documented in this encounter Plan of Treatment Not on file documented as of this encounter Visit Diagnoses Not on filedocumented in this encounter Care Teams Director Of Residence Life Relationship Specialty Start Date End Date Natalia Irizarry PA-C PCP - General Internal Medicine 04/20/23 Anirudh Patiño MD, PHD Surgeon Neurosurgery 03/03/21 Kris Garcia MD Specialist Cardiology 03/26/21 documented as of this encounter
--- OUTSIDE RECORDS SUMMARY | 2024-06-08 08:00 | XMS_ITS | Clinical Summary ---
Author Organization [facility] Address [address] [place] [address] Care Team Providers Care Fur Coat Sewer Name Role Phone Isaac Raphael MD Primary Care Provider Unavailab le Allergies Active Allergy Reactions Criticality Noted Date Comments Influenza Vaccines Other (See Comments) 013 Iodinated Contrast Media Nausea And Vomiting Cat scan dye Medications Medication Sig Dispensed Refills Start Date End Date Status pantoprazole (PROTONIX) 20 MG tablet Take 40 mg by mouth. 0 Active Cholecalciferol (VITAMIN D) 50 MCG (1999) CAPS Take 1 tablet by mouth. 0 01/24/2019 Active albuterol (PROVENTIL) (2.5 MG/3ML) 0.083% nebulizer solution Inhale 2.5 mg into the lungs. 0 06/29/2019 Active ibuprofen (ADVIL,MOTRIN) 600 MG tablet Take 600 mg by mouth every 6 (six) hours as needed. for pain 0 02/05/2020 Active phentermine (ADIPEX-P) 37.5 MG tablet Take 37.5 mg by mouth every morning. before breakfast 0 12/08/2020 Active Active Problems Problem Noted Date Diagnosed Date Cervical spinal stenosis 01/22/2021 Cervical neck pain with evidence of disc disease 01/06/2021 Adhesive capsulitis of right shoulder 06/10/2020 Traumatic incomplete tear of right rotator cuff 01/11/2020 Family History Medical History Relation Name Comments Diabetes Mother Hypertension Mother Relation Name Status Comments Mother Social History Tobacco Use Types Packs/Day Years Used Date Smoking Tobacco: Never Assessed Sex and Gender Information Value Date Recorded Sex Assigned at Not on file Gender Identity Not on file Sexual Orientation Not on file Job Start Date Occupation Industry Not on file Not on file Not on file Last Filed Vital Signs Vital Sign Reading Time Taken Comments Blood Pressure - - Pulse - - Temperature - - Respiratory Rate - - Oxygen Saturation - - Inhaled Oxygen Concentration - - Weight 95.7 kg (211 lb) 01/22/2021 8:56 AM EDT Height 160 cm (5' 3 ) 01/22/2021 8:56 AM EDT Body Mass Index 37.38 01/22/2021 8:56 AM EDT Plan of Treatment Health Maintenance Due Date Last Done Comments Hepatitis B Vaccines (1 of 3 - 3-dose series) 1972 Hepatitis C Screening 1972 COVID-19 Vaccine (#1) 03/14/1973 Depression Screening 1984 BMI Counseling 1990 Preventative Health Evaluation 1990 Cervical Cancer Screening (Pap Smear) 1993 Colon Cancer Screening (Colonoscopy) 2017 Breast Cancer Screening (Mammogram) 2022 Shingrix-Zoster Vaccine (1 o f 2) 2022 DTap / Tdap / Td (2 - Td or Tdap) 12/28/2022 12/28/2012, 10/21/2008 Influenza Vaccine (#1) 2023 02/13/2008 Pneumococcal Vaccine Aged Out No long er eligible based on patient's age to complete this topic RSV Ped < 20 months Aged Out No longe r eligible based on patient's age to complete this topic Care Teams Fur Coat Sewer Relationship Specialty Start Date End Date Isaac Raphael MD PCP - General Internal Medicine 12/28/19
--- OUTSIDE RECORDS SUMMARY | 2024-06-08 08:00 | XMS_ITS | Encounter Summary ---
Author Organization [employer] [facility] Address [address] [place] [address] Care Team Providers Care Pond Supervisor Name Role Phone Carlos Michaud MD Primary Care Provider Unavail able Isaac Raphael MD Primary Care Provider [phone] Delifna Natarajan MD Primary Care Provider Unavailabl e Isaac Raphael MD Primary Care Provider [phone] Anirudh Patiño MD, PHD Unavailable Unava ilable Kris Garcia MD Unavailable Natalia Irizarry PA-C Primary Care Provider + Encounter Details Date Type Department Care Team Description [facility] [address] [place] [address] Marcelo Contreras, OD Social History Tobacco Use Types Packs/Day Years [...] encounter Miscellaneous Notes * Telephone Encounter - Katherine Galan - 11/24/2016 4:03 PM EDT Message left on to schedule apt with pcp as noted below. * Telephone Encounter - Peterbryon Ángel Contreras, OD - 11/23/2016 4:36 PM EDT This patient has experienced several episodes of right sided possible facial weakness. I have advised her to follow Up with you as soon as possible. documented in this encounter Plan of Treatment Not on file documented as of this encounter Visit Diagnoses Not on filedocumented in this encounter Care Teams Pond Supervisor Relationship Specialty Start Date End Date Carlos [...]
--- OUTSIDE RECORDS SUMMARY | 2024-06-08 08:00 | XMS_ITS | Clinical Summary ---
Author Organization [address] [facility] Address [address] [place] [address] Phone Care Team Providers Care Mdm Sr Name Role Phone Andrea Irizarry Primary Care Provider + Allergies Active Allergy Reactions Criticality Noted Date Comments Influenza Virus Vaccines Hives,Rash 12/28/2012 Iodinated Contrast Media Nausea And Vomiting Cat scan dye Morphine Hallucinations High 01/08/2022 Oxycodone-Acetaminophen Hallucinations High 01/09/20 22 Medications albuterol 2.5 mg /3 mL (0.083 %) nebulizer solution Inhale 3 mL (2.5 mg total) by mouth every 6 (six) hours if needed for wheezing. 06/29/19 20 Active clotrimazole-bet amethasone (LOTRISONE) 1-0.05 % cream Apply topically 2 (two) times a day. APPLY SPARINGLY TO AFFECTED AREA FOR UP TO 2 WEEKS 07/27/19 23 Active multivit-min/iro n/folic acid/K (ADULTS MULTIVITAMIN ORAL) Take by mouth. Active nebulizer and compressor (MY MDI PORTABLE NEBULISER MISC) 1 Units by Not Applicable route 2 (two) times a day if needed. SOB 06/29/19 20 Active pantoprazole (PROTONIX) 40 mg EC tablet Take 1 tablet (40 mg total) by mouth 1 (one) time each day. 08/13/19 21 Active albuterol HFA (PROAIR HFA ; PROVENTIL HFA ; VENTOLIN HFA) 90 mcg/actuation inhalerIndicatio ns:Asthma, unspecified asthma severity, unspecified whether complicated, unspecified whether persistent Inhale 2 puffs by mouth every 6 (six) hours if needed for wheezing or shortness of breath. 6.7 g 11 02/07/20 24 Active fluticasone HFA (FLOVENT HFA) 110 mcg/actuation inhalerIndicatio ns:Moderate persistent asthma without complication Inhale 2 puffs by mouth 2 (two) times a day. 1 each 1 02/20/20 24 Active budesonide (Pulmicort Flexhaler) 180 mcg/actuation inhaler Inhale 1 puff by mouth 2 (two) times a day. Rinse mouth with water after use to reduce aftertaste and incidence of candidiasis. Do not swallow. 1 each 03/09/20 24 025 Active cetirizine (ZyrTEC) 10 mg tabletIndication s:Allergic contact dermatitis, unspecified cause TAKE 1 TABLET BY MOUTH DAILY NEEDED FOR ALLERGIES. 90 tablet 1 04/19/19 25 Active tirzepatide, weight loss, (Zepbound) 5 mg/0.5 mL solutionIndicati ons:Obesity (BMI 30-39.9) Inject 5 mg under the skin every 7 (seven) days. 2 mL 1 04/20/19 25 Active tiZANidine (ZANAFLEX) 4 mg tablet TAKE 1 TABLET BY MOUTH AT BEDTIME NEEDED FOR MUSCLE SPASMS. 90 tablet 1 04/23/19 25 Active diphenhydrAMINE (Banophen) 25 mg capsule Take 1 capsule (25 mg total) by mouth every 8 (eight) hours if needed for itching. 90 capsule 1 05/18/19 25 Active diphenhydrAMINE (BENADRYL) 25 mg tablet Take 1 tablet (25 mg total) by mouth every 8 (eight) hours if needed for itching. 90 tablet 1 02/20/20 24 025 Discontinued Active Problems Problem Noted Date Diagnosed Date Paresthesias in left hand 01/08/2024 Paresthesias in right hand 01/08/2024 Prediabetes 08/18/2023 Hyperlipidemia 05/11/2021 Overview (01/08/2024): Last Assessment & Plan: Most recent lipid profile was from 2019 and triglyceride was mildly elevated. I will repeat a fasting lipid. Palpitations 05/07/2021 Overview (01/08/2024): Last Assessment & Plan: Her symptoms are more consistent with benign premature heartbeats. Holter monitor was unremarkable and her symptoms were also mild. Her cardiac physical exam is normal. I tried to reassure her. I will not pursuing further cardiac testing. Obesity (BMI 30-39.9) 03/17/2021 ASCUS with positive high risk HPV cervical 07/19 Overview (01/08/2024): Pap 05/2019 - ASCUS, positive HPV Colpo 07/18/2019 - biopsies at 12:00 and 9:00 chronic cervicitis, no dysplasia Acute pain of right shoulder 12/06/2018 Easy bruising 12/06/2018 Vitamin D deficiency 08/15/2013 GERD (gastroesophageal reflux disease) 2 Back pain 11/19/2011 Cervical dysplasia 11/19/2011 Constipation 11/19/2011 CTS (carpal tunnel syndrome) 11/19/2011 Fibromyalgia 11/19/2011 Asthma Encounters Date Type Department Care Team Description 04/18/2024 Telephone Internal Medicine [facility] [address] [phone] Delores Jacobs MA rx request 03/30/2024 Telephone Internal Medicine [facility] [address] [phone] Delores Jacobs MA Back Pain 03/12/2024 Telephone Internal Medicine [facility] [address] [phone] Andrea Iirzarry PA Prior Authorization from Last 3 Months Immunizations Name Administration Dates Next Due Hepatitis A Adult (Havrix; V aqta) 19yo and older 12/23/2008,10/21/2008,01/19/2005 Influenza trivalent, 0.5mL, preservative free (Fluarix; FluLaval; Fluzone) ages 6mo and older (Afluria) 3 years and older 02/13/2008 Td Tetanus diptheria (Tdvax) 7yo and older 10/21 Tdap Tetanus diptheria acell ular pertussis (Boostrix; Adacel) 7yo and older 12/28/2012 Zoster Live 10/24/2022 Surgical History Surgery Date Site/Laterality Comments CHOLECYSTECTOMY 08/27/2011 PROCEDURE: LAPAROSCOPY, CHOLECYSTECTOMY SECTION PROCEDURE: [place] DELIVERY ONLY BELT ABDOMINOPLASTY PROCEDURE: HISTORICAL TUMMY TUCK APPENDECTOMY PROCEDURE: HISTORICAL APPENDECTOMY TUBAL LIGATION PROCEDURE: HISTORICAL TUBAL LIGATION ESOPHAGOGASTRODUODENOSCOPY 12/02/2011 PROCEDURE: NH ESOPHAGOGASTRODUODENOSCOPY TRANSORAL DIAGNOSTIC; COMMENT: mild distal esophagitis (erythema) SHOULDER SURGERY Right PROCEDURE: HISTORICAL SHOULDER SURGERY; COMMENT: 2019 Dr. Guo, right shoulder arthroscopy Medical History Medical History Date Comments GERD (gastroesophageal reflu x disease) 01/25/2012 DX:GERD (gastroesophageal re flux disease) Back pain 11/19/2011 DX:Back pain Cervical dysplasia 11/19/2011 DX:Cervical d ysplasia Constipation 11/19/2011 DX:Constipation CTS (carpal tunnel syndrome) 11/19/2011 DX: CTS (carpal tunnel syndrome) Fibromyalgia 11/19/2011 DX:Fibromyalgia History of Helicobacter pylo ri infection 11/01/2014 DX:History of Helicobacter p ylori infection Paresthesias in left hand 10/18/2017 DX:Par esthesias in left hand Paresthesias in right hand 10/18/2017 DX:Pa resthesias in right hand Vitamin D deficiency 08/15/2013 DX:Vitamin D deficiency Prediabetes DX:Prediabetes Asthma Family History Medical History Relation Name Comments Blindness Aunt Cataracts Aunt Cervical cancer Mother ?precancer?c ancer of ?cervix Diabetes Mother Heart attack Mother Hypertension Mother Cervical cancer Mother's side 1 1st cousi n Brain cancer Mother's side 2 Aunt Uterine cancer Mother's side 3 Aunt Breast cancer Neg Hx Colon cancer Neg Hx Glaucoma Neg Hx Macular degeneration Neg Hx Ovarian cancer Neg Hx Strabismus Neg Hx Relation Name Status Comments Aunt Father Alive dementia Mother Alive Mother's side 1 Mother's side 2 Mother's side 3 Social History Tobacco Use Types Packs/Day Years Used Date Smoking Tobacco: Former Cigarettes Q uit: 03/28/1998 Smokeless Tobacco: Former Alcohol Use Standard Drinks/Week Comments No 0 (1 standard drink = 0.6 oz pur e alcohol) Comments Unknown Sex and Gender Information Value Date Recorded Sex Assigned at Not on file Legal Sex Female 5:21 AM EST Gender Identity Not on file Sexual Orientation Not on file Obstetrics History Last Filed Vital Signs Vital Sign Reading Time Taken Comments Blood Pressure 124/72 02/20/2024 9:22 AM EST Pulse 75 02/20/2024 9:22 AM EST Temperature 36.4 ??C (97.5 ??F) 02/20/2024 9:22 AM ES T Respiratory Rate - - Oxygen Saturation - - Inhaled Oxygen Concentration - - Weight 103 kg (228 lb) 02/20/2024 9:22 AM EST Height 160 cm (5' 3 ) 02/20/2024 9:22 AM EST Body Mass Index 40.39 02/20/2024 9:22 AM EST Plan of Treatment Upcoming Encounters Date Type Department Care Team (Late st Contact Info) Description 08/28/2024 10:00 AM EDT Office Visit Internal Medicine - [facility] [address] [phone] Andrea Irizarry PA [address] [address] 01/29/2025 9:45 AM EST Office Visit Pulmonolgy - [facility] [address] [phone] Rafita Sigala MD [address] [address] Health Maintenance Due Date Last Done Comments Hepatitis B Vaccines (1 of 3 - 19+ 3-dose series) 09/13/1991 Pneumococcal Vaccine: 50+ Years (1 of 2 - PCV) 09/13/1991 Pneumococcal Vaccine: Pediatrics (0 to 5 Years) and At-Risk Patients (6 to 64 Years) (1 of 2 - PCV) 09/13/1991 Depression Screening 03/06/2022 Social Influencers of Health Screening 03/06/2022 DTaP,Tdap,and Td Vaccines (3 - Td or Tdap) 12/28/2022 12/28/2012, 10/21/2008 Zoster Vaccines (3 of 3) 03/04/2023 01/07/2023, 09/27 COVID-19 Vaccine ( - 2024-25 season) 2023 Influenza Vaccine (#1) 2023 02/13/2008 Breast Cancer Screening 01/25/2025 01/26/20 23, 06/08/2021, 10/01/2019, Additional history exists Cervical Cancer Screening: HPV 02/23/2026 02/23/2021 Cholesterol Screening (Lipid Panel) 02/19/2029 02/20/2024, 09/05/2023, 09/05/2023 Colorectal Cancer Screening: Colonoscopy 06/12/2030 06/12/2020 Hepatitis A Vaccines Aged Out 12/23/2008, 10/21/2008, 01/19/2005 No longer eligible based on patient's age to complete this topic Hepatitis C Screening Completed 01/18/2014 HIV Screening Completed 08/13/2020 HIB Vaccines Aged Out No longer eligi ble based on patient's age to complete this topic HPV Vaccines Aged Out No longer eligi ble based on patient's age to complete this topic IPV Vaccines Aged Out No longer eligi ble based on patient's age to complete this topic MMR Vaccines Aged Out No longer eligi ble based on patient's age to complete this topic Meningococcal ACWY Vaccine Aged Out N o longer eligible based on patient's age to complete this topic Meningococcal B Vacine Aged Out No lo nger eligible based on patient's age to complete this topic RSV Immunization Patients Under 20 months Aged Out No longer eligible based on patient's age to complete this topic Varicella Vaccines Aged Out No longer eligible based on patient's age to complete this topic Procedures Procedure Name Priority Date/Time Associated Diagnosis Comments LIPID PANEL WITH REFLEX TO DIRECT LDL Routine 02/20/2024 10:02 AM EST Post menopausal syndrome PRICILLA SCREENING DIGITAL Routine 01/25/2023 8:02 AM EDT Encounter for screening mammogram for malignant neoplasm of breast HPV Routine 02/23/2021 HIV SCREENING Routine 08/13/2020 COLONOSCOPY Routine 06/12/2020 HEPATITIS C SCREENING Routine 01/18/2014 from Last 3 Months or Most Recently Relevant to Health Maintenance Results * (ABNORMAL) Lipid panel with reflex to direct LDL (02/20/2024 10:02 AM EST) Cholesterol 236(H) 0 - 200 mg/dL LAB CHEMISTRY METHOD 02/20/2024 5:47 PM EST [facility] Triglycerides 299(H) 0 - 150 mg/dL LAB CHEMISTRY METHOD 02/20/2024 5:47 PM EST [facility] HDL 44 >=40 mg/dL LAB CHEMISTRY METHOD 02/20/2024 5:47 PM [facility] LDL Calculated 132(H) 0 - 100 mg/dL LAB CHEMISTRY METHOD 02/20/2024 5:47 PM [facility] VLDL Cholesterol Augustine 59.8 mg/dL LAB CHEMISTRY METHOD 02/20/2024 5:47 PM [facility] Non HDL Chol. (LDL+VLDL) 192(H) <145 mg/dL LAB CHEMISTRY METHOD 02/20/2024 5:47 PM [facility] Chol/HDL Ratio 5.4(H) 0.0 - 4.4 LAB CHEMISTRY METHOD 02/20/2024 5:47 PM [facility] Blood Venous blood specimen / Unknown Venipuncture / Unknown 02/20/2024 10:02 AM EST 02/20/2024 10:02 AM EST us Andrea DURAND LAB BLOOD ORDERABLES Fin al Result [facility] [address] [place] [address], * PRICILLA SCREENING DIGITAL (01/25/2023 8:02 AM EDT) Anatomical Region Laterality Modality Mammography 01/25/2023 7:30 AM EDT Narrative 01/25/2023 8:02 AM EDT [facility] Diagnostic Imaging Department [address] [place] [address] Patient: ??ERNST HUMPHRIES I ?/Age/Sex: 1970 - 52 - F Unit#: ??[id number] ? Location/Status: ??SPDIMAM/REG CLI ? Mnemonic/Ordering Site: ??DIGSC/SPMAM Ordering Physician: ??ANDREA IRIZARRY PA-C [facility] Screening Digital - 01/25/23 - 8589 Report Status:Signed HISTORY: The patient is a 52-year-old female presenting for routine screening mammography. FINDINGS: ??Full-field digital mammography of the breasts bilaterally consisting of tomosynthesis in MLO and CC projection is performed in the [employer] 2000-D unit. ??Computer aided detection utilizing the iCAD system was utilized. The breasts are again seen to be largely fatty-replaced (the breasts are almost entirely fatty, category A density as calculated with [employer]mart[employer] Volpara software), as also demonstrated on prior studies most recently 01/15/2022 and most remotely 04/08/2015. ??A 7 mm nodule laterally in the right breast is stable over many years and is therefore again regarded as being benign. ??A few scattered bilateral benign-appearing calcifications are without suspicious interval change. ??There is no suspicious cluster of microcalcifications, mass, or area of architectural distortion. There is no skin thickening or nipple retraction. IMPRESSION: No mammographic evidence of malignancy. A negative mammogram in the presence of a clinically suspicious palpable abnormality does not preclude the possibility of malignancy or alter the indications for biopsy. BIRADS Code Class 2: ??Benign Finding PQRI CPT II 3342F Code 77851, 89174 PQRI 225 CPT II 7025F Dictating Physician: ??MATT GALARZA MD Electronically Signed by: ??MATT GALARZA MD Dic Date/Time: ??01/25/23 0758 Sign date/Time: ??01/25/23801 Procedure Note Matt Galarza MD - 05/03/2023 [facility] Diagnostic Imaging Department [address] [place] [address] Patient: RUBIN HUMPHRIESTENA Jones /Age/Sex: 1970 - 52 - F Unit#: [id number] Location/Status: [facility] Mnemonic/Ordering Site: [facility] Ordering Physician: ANDREA IRIAZRRY PA-C [facility] Screening Digital - 01/25/23753 Report Status:Signed HISTORY: The patient is a 52-year-old female presenting for routinescreening mammography. FINDINGS: Full-field digital mammography of the breasts bilaterallyconsisting of tomosynthesis in MLO and CC projection is performed in the [employer] 2000-D unit. Computer aided detection utilizing the iCAD system wasutilized. The breasts are again seen to be largely fatty-replaced (the breasts arealmost entirely fatty, category A density as calculated with iReveal Volparasoftware), as also demonstrated on prior studies most recently 01/15/2022 and mostremotely 04/08/2015. A 7 mm nodule laterally in the right breast is stable overmany years and is therefore again regarded as being benign. A few scattered bilateral benign-appearing calcifications are without suspiciousinterval change. There is no suspicious cluster of microcalcifications, mass, orarea of architectural distortion. There is no skin thickening or nippleretraction. IMPRESSION: No mammographic evidence of malignancy. A negative mammogram in the presence of a clinically suspicious palpable abnormality does not preclude the possibility of malignancy or alter the indications for biopsy. BIRADS Code Class 2: Benign Finding PQRI CPT II 3342F Code 86562, 45454 PQRI 225 CPT II 7025F Dictating Physician: MATT GALARZA MD Electronically Signed by: MATT GALARZA MD Dic Date/Time: 01/25/23 0758 Sign date/Time: 01/25/23 0802 Result [facility] Andrea DURAND IMG BI PROCEDURES Final Result * Cervical Cancer Screening: HPV (02/23/2021) [facility] Cervical Cancer Screening: HPV positive, abstracted Result [facility] Final Result * HIV Screening (08/13/2020) [facility] HIV Screening abstracted Result [facility] Provider HEALTH MAINTENANCE Final Result * Colonoscopy (06/12/2020) [facility] Colonoscopy no interpretation , abstracted Anatomical Region Laterality Modality Other Result [facility] Provider HEALTH MAINTENANCE Final Result * Hepatitis C Screening (01/18/2014) [facility] Hepatitis C Screening abstracted Result [facility] Provider HEALTH MAINTENANCE Final Result from Last 3 Months or Most Recently Relevant to Health Maintenance Insurance [employer] Care Teams Mdm Sr Relationship Specialty Start Date End Date Andrea Irizarry PA [address] [place] [address] PCP - General 04/20/23
--- OUTSIDE RECORDS SUMMARY | 2024-06-08 08:00 | XMS_ITS | Encounter Summary ---
Author Organization [facility] Address [address] [place] [address] Care Team Providers Care Speech/Language Therapist Name Role Phone Carlos Michaud MD Primary Care Provider Unavail able Isaac Raphael MD Primary Care Provider [phone] Delfina Natarajan MD Primary Care Provider Unavailabl e Isaac Raphael MD Primary Care Provider [phone] Anirudh Patiño MD, PHD Unavailable Unava ilable Kris Garcia MD Unavailable Natalia Irizarry PA-C Primary Care Provider + Encounter Details Date Type Department Care Team Description 09/15/2017 Orders Only Adult Medicine [address] [address] Chano Syed PA-C Gastroesophageal reflux disease with esophagitis; Dysphagia, unspecified type; Epigastric pain Social History Tobacco Use Types Packs/Day Years [...] on file documented as of this encounter Procedures Procedure Name Priority Date/Time Associated Diagnosis Comments CHG RADIOLOGIC EXAM ESOPHAGUS SINGLE CONTRAST STUDY Routine 08/30/2017 Gastroesophageal reflux disease with esophagitis Dysphagia, unspecified type Epigastric pain documented in this encounter Results * BARIUM SWALLOW (08/30/2017) Chano Syed PA-C RADIOLOGY documented in this encounter Visit Diagnoses Diagnosis Gastroesophageal reflux disease with esophagitis Dysphagia, unspecified type Epigastric pain Abdominal pain, epigastric documented in this encounter Care Teams Speech/Language Therapist Relationship Specialty Start Date End Date Carlos [...]
--- OUTSIDE RECORDS SUMMARY | 2024-06-08 08:00 | XMS_ITS | Encounter Summary ---
Author Organization [facility] Address [address] [place] [address] Care Team Providers Care Director Of Assessing Name Role Phone Carlos Michaud MD Primary Care Provider Unavail able Isaac Raphael MD Primary Care Provider [phone] Delfina Natarajan MD Primary Care Provider Unavailabl e Isaac Raphael MD Primary Care Provider [phone] Anirudh Patiño MD, PHD Unavailable Unava ilable Kris Garcia MD Unavailable Natalia Irizarry PA-C Primary Care Provider + Reason for Visit * Reason Onset Date Comments REFERRAL 08/17/2017 Encounter Details Date Type Department Care Team Description 08/17/2017 Telephone Gastroenterology - [address] [address] Parag Robles MD REFERRAL Social History Tobacco Use Types Packs/Day Years [...] encounter Miscellaneous Notes * Telephone Encounter - Parag Robles MD - 08/17/2017 4:38 PM EDT Put her on cancel list for me and for Shmuel. * Telephone Encounter - Liliana Yañez - 08/17/2017 3:46 PM EDT Patient was referred for an urgent appointment for Epigastric and RUQ abd pain with daily reflux/heartburn for long time . Last 2 weeks getting food stuck with swallowing and feeling like going to choke. Please review if urgent or routine? documented in this encounter Plan of Treatment Not on file documented as of this encounter Visit Diagnoses Not on filedocumented in this encounter Care Teams Director Of Assessing Relationship Specialty Start Date End Date Carlos [...]
--- OUTSIDE RECORDS SUMMARY | 2024-06-08 08:00 | XMS_ITS | Encounter Summary ---
Author Organization [facility] [employer] [facility] Address [address] [place] [address] Care Team Providers Care Validation Engineer Name Role Phone Isaac Raphael MD Primary Care Provider [phone] Anirudh Patiño MD, PHD Unavailable Unava ilable Kris Garcia MD Unavailable Natalia Irizarry PA-C Primary Care Provider + Encounter Details Date Type Department Care Team Description 11/20/2021 Telephone Internal Medicine [address], [address] [place] [address] Isaac Raphael MD [address] [place] [address] Social History Tobacco Use Types Packs/Day Years Used Date Smoking Tobacco: Former Cigarettes Q uit: 03/28/1998 Smokeless Tobacco: Former Alcohol Use Standard Drinks/Week Comments No 0 (1 standard drink = 0.6 oz pur e alcohol) Sex Assigned at Date Recorded Female 09/06/2022 9:59 PM E DT Job Start Date Occupation Industry Not on file Not on file Not on file COVID-19 Exposure Response Date Recorded In the last 10 days, have edison rivera been in contact with someone who was confirmed or suspected to have Coronavirus/COVID-19? No / Unsure 11/19/2021 7:38 AM EDT documented as of this encounter Miscellaneous Notes * Telephone Encounter - Ambika Omalley M.A. - 11/25/2021 9:52 AM EDT Spoke with pt informed order was placed * Telephone Encounter - Isaac Raphael MD - 11/23/2021 6:58 AM EDT Vitamin D levels to be checked ordered * Telephone Encounter - Ambika Omalley M.A. - 11/20/2021 4:32 PM EDT Pt wants lab order placed to check her vitamin D documented in this encounter Plan of Treatment Not on file documented as of this encounter Visit Diagnoses Not on filedocumented in this encounter Care Teams Validation Engineer Relationship Specialty Start Date End Date Isaac Raphael MD PCP - General Internal Medicine 03/12/20 04/19/23 Natalia Irizarry PA-C PCP - General Internal Medicine 04/20/23 Anirudh Patiño MD, PHD Surgeon Neurosurgery 03/03/21 Kris Garcia MD Specialist Cardiology 03/26/21 documented as of this encounter
--- OUTSIDE RECORDS SUMMARY | 2024-06-08 08:00 | XMS_ITS | Encounter Summary ---
Author Organization [facility] Address [address] [place] [address] Care Team Providers Care Heel Former Name Role Phone Isaac Raphael MD Primary Care Provider [phone] Anirudh Patiño MD, PHD Unavailable Unava ilable Kris Garcia MD Unavailable Natalia Irizarry PA-C Primary Care Provider + Encounter Details Date Type Department Care Team Description 09/20/2020 [facility] Medical Records [address] [place] [id number] Robbie Frazier MD Social History Tobacco Use Types Packs/Day Years [...] on filedocumented in this encounter Care Teams Heel Former Relationship Specialty Start Date End Date Isaac Raphael MD PCP - General Internal Medicine 03/12/20 04/19/23 Natalia Irizarry PA-C PCP - General Internal Medicine 04/20/23 Anirudh Patiño MD, PHD Surgeon Neurosurgery 03/03/21 Kris Garcia MD Specialist Cardiology 03/26/21 documented as of this encounter
--- OUTSIDE RECORDS SUMMARY | 2024-06-08 08:00 | XMS_ITS | Encounter Summary ---
Author Organization [facility] Address [address] [place] [address] Care Team Providers Care Professor Of Theater Name Role Phone Delfina Natarajan MD Primary Care Provider Unavailabl e Isaac Raphael MD Primary Care Provider [phone] Anirudh Patiño MD, PHD Unavailable Unava ilable Kris Garcia MD Unavailable Natalia Irizarry PA-C Primary Care Provider + Encounter Details Date Type Department Care Team Description 02/08/2020 Orders Only Medical Records [address] [place] [id number] Megan Boone DO Social History Tobacco Use Types Packs/Day Years [...] Exposure Response Date Recorded In the last month, have you been in contact with someone who was confirmed or suspected to have Coronavirus / COVID-19? No / Unsure 01/22/2020 12:39 PM EDT documented as of this encounter Plan of Treatment Not on file documented as of this encounter Procedures Procedure Name Priority Date/Time Associated Diagnosis Comments OUTSIDE PATHOLOGY Routine 02/04/2020 documented in this encounter Results * OUTSIDE PATHOLOGY (02/04/2020) Megan Boone DO OUTSIDE LAB documented in this encounter Visit Diagnoses Not on filedocumented in this encounter Care Teams Professor Of Theater Relationship Specialty Start Date End Date Delfina Natarajan MD PCP - General Family Practice 02/01/20 03/11/20 Isaac Raphael MD PCP - General Internal Medicine 03/12/20 04/19/23 Natalia Irizarry PA-C PCP - General Internal Medicine 04/20/23 Anirudh Patiño MD, PHD Surgeon Neurosurgery 03/03/21 Kris Garcia MD Specialist Cardiology 03/26/21 documented as of this encounter
--- OUTSIDE RECORDS SUMMARY | 2024-06-08 08:00 | XMS_ITS | Encounter Summary ---
Author Organization [facility] Address [address] [place] [address] Care Team Providers Care Engineering Geologist Name Role Phone Isaac Raphael MD Primary Care Provider Anirudh Patiño MD, PHD Unavailable Unava ilable Kris Garcia MD Unavailable Natalia Irizarry PA-C Primary Care Provider + Reason for Visit * Reason Onset Date Comments TEST RESULTS 02/25/2021 Encounter Details Date Type Department Care Team Description 02/25/2021 Telephone OBGYN - [address] [address] Ying Melara CNM TEST RESULTS Social History Tobacco Use Types Packs/Day Years [...] have Coronavirus / COVID-19? No / Unsure 02/02/2021 1:11 PM EST documented as of this encounter Miscellaneous Notes * Telephone Encounter - Lani Diaz M.A. - 02/25/2021 10:12 AM EST Left message to call [facility] WAREHOUSE REPRESENTATIVE ask for Lani/OB Needs to schd colpo * Telephone Encounter - Lani Diaz M.A. - 02/25/2021 10:12 AM EST ----- Message from Ying Melara CNM sent at 02/25/2021 6:32 AM EST ----- I have reviewed the Pathology report. Based on the result, this patient should have a follow-up Schedule for Colposcopy documented in this encounter Plan of Treatment Not on file documented as of this encounter Visit Diagnoses Not on filedocumented in this encounter Care Teams Engineering Geologist Relationship Specialty Start Date End Date Isaac Raphael MD PCP - General Internal Medicine 03/12/20 04/19/23 Natalia Irizarry PA-C PCP - General Internal Medicine 04/20/23 Anirudh Patiño MD, PHD Surgeon Neurosurgery 03/03/21 Kris Garcia MD Specialist Cardiology 03/26/21 documented as of this encounter
--- OUTSIDE RECORDS SUMMARY | 2024-06-08 08:00 | XMS_ITS | Encounter Summary ---
Author Organization [facility] [employer] [facility] Address [address] [place] [address] Care Team Providers Care Trumpet Player Name Role Phone Isaac Raphael MD Primary Care Provider [phone] Delfina Natarajan MD Primary Care Provider Unavailabl e Isaac Raphael MD Primary Care Provider [phone] Anirudh Patiño MD, PHD Unavailable Unava ilable Kris Garcia MD Unavailable Natalia Irizarry PA-C Primary Care Provider + Reason for Visit * Reason Onset Date Comments Call-returning From Provider 09/17/2019 Encounter Details Date Type Department Care Team Description 09/17/2019 Telephone Internal Medicine [address], [address] [place] [address] Isaac Raphael MD [address] [place] [address] Call-returning From Provider Social History Tobacco Use Types Packs/Day [...] encounter Miscellaneous Notes * Telephone Encounter - Ellen Hurst R.N. - 09/17/2019 3:25 PM EDT Pt did not answer. Per last encounter, LM informing pt that script for 7 day course of Lasix sent to [facility] on [address] Asked pt to return call to confirm she got our messages. Ellen Hurst RN * Telephone Encounter - Екатерина - 09/17/2019 3:19 PM EDT Patient returning call, see previous encounter documented in this encounter Plan of Treatment Not on file documented as of this encounter Visit Diagnoses Not on filedocumented in this encounter Care Teams Trumpet Player Relationship Specialty Start Date End Date Isaac [...]
--- OUTSIDE RECORDS SUMMARY | 2024-06-08 08:00 | XMS_ITS | Encounter Summary ---
Author Organization [facility] Address [address] [place] [address] Care Team Providers Care Station Agent Name Role Phone Carlos Michaud MD Primary Care Provider Unavail able Isaac Raphael MD Primary Care Provider [phone] Delfina Natarajan MD Primary Care Provider Unavailabl e Isaac Raphael MD Primary Care Provider [phone] Anirudh Patiño MD, PHD Unavailable Unava ilable Kris Garcia MD Unavailable Natalia Irizarry PA-C Primary Care Provider + Encounter Details Date Type Department Care Team Description 09/03/2011 Release of Information Medical Records [address] [place] [id number] Abstract, Provider Social History Tobacco Use Types Packs/Day Years Used Date Smoking Tobacco: Former Alcohol Use Standard Drinks/Week Comments Not Asked 0 (1 standard drink = 0.6 oz pur e alcohol) Sex Assigned at Date Recorded Female 09/06/2022 9:59 PM E DT Job Start Date Occupation Industry Not on file Not on file Not on file documented as of this encounter Plan of Treatment Not on file documented as of this encounter Visit Diagnoses Not on filedocumented in this encounter Care Teams Station Agent Relationship Specialty Start Date End Date Carlos [...]
--- OUTSIDE RECORDS SUMMARY | 2024-06-08 08:00 | XMS_ITS | Encounter Summary ---
Author Organization [facility] [employer] [facility] Address [address] [place] [address] Care Team Providers Care Escrow Clerk Name Role Phone Carlos Michaud MD Primary Care Provider Unavail able Isaac Raphael MD Primary Care Provider [phone] Delfina Natarajan MD Primary Care Provider Unavailabl e Isaac Raphael MD Primary Care Provider [phone] Anirudh Patiño MD, PHD Unavailable Unava ilable Kris Garcia MD Unavailable Natalia Irizarry PA-C Primary Care Provider + Reason for Visit * Reason Onset Date Comments Testing 08/17/2017 Barium Swallow Encounter Details Date Type Department Care Team Description 08/17/2017 Telephone Adult Medicine [address] [address] Chano Syed PA-C Testing (Barium Swallow ) Social History Tobacco Use Types Packs/Day Years [...] encounter Miscellaneous Notes * Telephone Encounter - Annia Duong - 08/17/2017 10:30 AM EDT Order and benefits faxed to [place] she will contact patient with appointment information. Notification letter mailed to patient * Telephone Encounter - Diaz Estes - 08/17/2017 8:11 AM EDT [facility] No auth Req Barium Swallow To supervisor microbiology technologists for booking documented in this encounter Plan of Treatment Not on file documented as of this encounter Visit Diagnoses Not on filedocumented in this encounter Care Teams Escrow Clerk Relationship Specialty Start Date End Date Carlos [...]
--- OUTSIDE RECORDS SUMMARY | 2024-06-08 08:00 | XMS_ITS | Encounter Summary ---
Author Organization [facility] Address [address] [place] [address] Care Team Providers Care Board Saw Runner Name Role Phone Isaac Raphael MD Primary Care Provider Anirudh Patiño MD, PHD Unavailable Unava ilable Kris Garcia MD Unavailable Natalia Irizarry PA-C Primary Care Provider + Encounter Details Date Type Department Care Team Description 06/02/2021 SCAN [facility] Neurosurgery [place] [address] [address] Anirudh Patiño MD, PHD Social History Tobacco Use Types Packs/Day Years [...] have Coronavirus / COVID-19? No / Unsure 05/11/2021 8:18 AM EST documented as of this encounter Plan of Treatment Not on file documented as of this encounter Visit Diagnoses Not on filedocumented in this encounter Care Teams Board Saw Runner Relationship Specialty Start Date End Date Isaac Raphael MD PCP - General Internal Medicine 03/12/20 04/19/23 Natalia Irizarry PA-C PCP - General Internal Medicine 04/20/23 Anirudh Patiño MD, PHD Surgeon Neurosurgery 03/03/21 Kris Garcia MD Specialist Cardiology 03/26/21 documented as of this encounter
--- OUTSIDE RECORDS SUMMARY | 2024-06-08 08:00 | XMS_ITS | Encounter Summary ---
Author Organization [facility] Address [address] [place] [address] Care Team Providers Care Inspector And Adjuster Golf Club Head Name Role Phone Delfina Natarajan MD Primary Care Provider Unavailabl e Isaac Raphael MD Primary Care Provider [phone] Anirudh Patiño MD, PHD Unavailable Unava ilable Kris Garcia MD Unavailable Natalia Irizarry PA-C Primary Care Provider + Encounter Details Date Type Department Care Team Description 03/05/2020 [facility] Medical Records [address] [place] [id number] Abstract, Provider Social History Tobacco Use Types [...] have Coronavirus / COVID-19? No / Unsure 02/18/2020 2:23 PM EST documented as of this encounter Plan of Treatment Not on file documented as of this encounter Visit Diagnoses Not on filedocumented in this encounter Care Teams Inspector And Adjuster Golf Club Head Relationship Specialty Start Date End Date Delfina Natarajan MD PCP - General Family Practice 02/01/20 03/11/20 Isaac Raphael MD PCP - General Internal Medicine 03/12/20 04/19/23 Natalia Irizarry PA-C PCP - General Internal Medicine 04/20/23 Anirudh Patiño MD, PHD Surgeon Neurosurgery 03/03/21 Kris Garcia MD Specialist Cardiology 03/26/21 documented as of this encounter
--- OUTSIDE RECORDS SUMMARY | 2024-06-08 08:00 | XMS_ITS | Encounter Summary ---
Author Organization [facility] Address [address] [place] [address] Care Team Providers Care Channeler Name Role Phone Isaac Raphael MD Primary Care Provider [phone] Anirudh Patiño MD, PHD Unavailable Unava ilable Kris Garcia MD Unavailable Natalia Irizarry PA-C Primary Care Provider + Encounter Details Date Type Department Care Team Description 05/05/2021 SCAN Medical Records [address] [place] [id number] Abstract, Provider Social History Tobacco Use Types [...] have Coronavirus / COVID-19? No / Unsure 04/09/2021 8:04 AM EST documented as of this encounter Plan of Treatment Not on file documented as of this encounter Visit Diagnoses Not on filedocumented in this encounter Care Teams Channeler Relationship Specialty Start Date End Date Isaac Raphael MD PCP - General Internal Medicine 03/12/20 04/19/23 Natalia Irizarry PA-C PCP - General Internal Medicine 04/20/23 Anirudh Patiño MD, PHD Surgeon Neurosurgery 03/03/21 Kris Garcia MD Specialist Cardiology 03/26/21 documented as of this encounter
--- OUTSIDE RECORDS SUMMARY | 2024-06-08 08:00 | XMS_ITS | Encounter Summary ---
Author Organization [facility] [employer] [facility] Address [address] [place] [address] Care Team Providers Care Associate Manager Name Role Phone Isaac Raphael MD Primary Care Provider [phone] Anirudh Patiño MD, PHD Unavailable Unava ilable Kris Garcia MD Unavailable Natalia Irizarry PA-C Primary Care Provider + Reason for Visit * Reason Onset Date Comments REFERRAL 12/17/2021 Encounter Details Date Type Department Care Team Description 12/17/2021 Telephone Pulmonology - [address] [place] [address] Isaac Raphael MD [address] [place], [place] [id number] REFERRAL Social History Tobacco Use Types Packs/Day [...] Recorded In the last 10 days, have yo u been in contact with someone who was confirmed or suspected to have Coronavirus/COVID-19? No / Unsure 11/19/2021 7:38 AM EDT documented as of this encounter Miscellaneous Notes * Telephone Encounter - Mckenzie Rojas 12/17/2021 11:22 AM EDT Pt needs a referral for a Mammogram. * Telephone Encounter - Tessie Lezama M.A. - 12/17/2021 10:08 AM EDT Patient is requesting an appointment patient is experiencing breast discomfort on her right breast for about 2 weeks and she wants to be refer to do a diagnostic mammogram documented in this encounter Plan of Treatment Not on file documented as of this encounter Visit Diagnoses Not on filedocumented in this encounter Care Teams Associate Manager Relationship Specialty Start Date End Date Isaac Raphael MD PCP - General Internal Medicine 03/12/20 04/19/23 Natalia Irizarry PA-C PCP - General Internal Medicine 04/20/23 Anirudh Patiño MD, PHD Surgeon Neurosurgery 03/03/21 Kris Garcia MD Specialist Cardiology 03/26/21 documented as of this encounter
--- OUTSIDE RECORDS SUMMARY | 2024-06-08 08:00 | XMS_ITS | Clinical Summary ---
Author Organization [facility] Address [address] [place] [address], [place] [address] Care Team Providers Care Grapple Operator Name Role Phone Isaac Raphael MD Primary Care Provider [phone] Allergies Active Allergy Reactions Criticality Noted Date Comments Influenza Vaccines Other (see comments) 013 Iodinated Contrast Media Nausea And Vomiting Cat scan dye Other Nausea And Vomiting 02/03/2016 Cat scan dye Medications albuterol (2.5 MG/3ML) 0.083% nebulizer solution Inhale 2.5 mg 0 Active Cholecalciferol 50 MCG (1999) capsule Take 1 tablet by mouth 9 Active lidocaine (XYLOCAINE) 2 % jelly Apply 1 Squirt topically 0 Active loratadine (CLARITIN) 10 MG tablet Take 10 mg by mouth 9 Active mupirocin (BACTROBAN) 2 % ointment Apply twice a day in the nostril for 5 days 1 Active nystatin (MYCOSTATIN) powder Apply to affected area four times daily for 10 days 0 Active valACYclovir (VALTREX) 1 g tablet Take 1,000 mg by mouth 0 Active pantoprazole (PROTONIX) 40 MG EC tablet Take 40 mg by mouth 1 (one) time each day 1 Active metroNIDAZOLE (FLAGYL) 500 MG tablet Take 500 mg by mouth 3 times a day 1 Active levoFLOXacin (LEVAQUIN) 750 MG tablet Take 750 mg by mouth 1 Active ibuprofen (ADVIL,MOTRIN) 800 MG tablet Take 800 mg by mouth every 8 (eight) hours if needed 1 Active clindamycin (CLEOCIN) 300 MG capsule Take 300 mg by mouth Active Active Problems Problem Noted Date Diagnosed Date 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 History of Helicobacter pylori infection 015 Vitamin D deficiency 08/15/2013 Resolved Problems Problem Noted Date Diagnosed Date Resolved Date Adhesive capsulitis of right shoulder 06/10/2020 10/27/2020 Traumatic rupture of rotator cuff 01/11/2020 10/27/2020 Bruises easily 12/06/2018 10/27/2020 Shoulder pain 12/06/2018 10/27/2020 Paresthesia of hand 10/18/2017 10/28/19 Gastroesophageal reflux disease 01/25/2012 10/27/2020 Back pain 11/19/2011 10/27/2020 Carpal tunnel syndrome 11/19/201110/27 Cervical dysplasia 11/19/2011 Overview (10/24/2020): Pap 05/2019 - ASCUS, positive HPV Colpo 07/18/2019 - biopsies at 12:00 and 9:00 chronic cervicitis, no dysplasia Constipation 11/19/2011 10/27/2020 Fibromyalgia 11/19/2011 10/27/2020 Immunizations Name Administration Dates Next Due Hepatitis A 12/23/2008,10/21/2008,01/19/2005 Influenza TIV (IM) 02/13/2008 Td 10/21/2008 Tdap 12/28/2012 Family History Medical History Relation Comments Diabetes Mother Hypertension Mother Relation Status Comments Mother Social History Tobacco Use Types Packs/Day Years Used Date Smoking Tobacco: Never Smokeless Tobacco: Never Alcohol Use Standard Drinks/Week Comments Never 0 (1 standard drink = 0.6 oz pur e alcohol) Comments Unknown Sex and Gender Information Value Date Recorded Sex Assigned at Not on file Legal Sex Female 9:12 AM EDT Gender Identity Not on file Sexual Orientation Not on file Last Filed Vital Signs Vital Sign Reading Time Taken Comments Blood Pressure 140/70 10/27/2020 2:25 PM EDT Pulse 94 10/27/2020 2:25 PM EDT Temperature - - Respiratory Rate - - Oxygen Saturation 99% 10/27/2020 2:25 PM EDT Inhaled Oxygen Concentration - - Weight 96 kg (211 lb 9.6 oz) 10/27/2020 2:25 PM EDT Height - - Body Mass Index - - Plan of Treatment Health Maintenance Due Date Last Done Comments Breast Cancer Screening 1972 Hepatitis B Vaccine (1 of 3 - 19+ 3-dose series) 09/13/1991 Colorectal Cancer Screening: Annual FOBT 2021 Colorectal Cancer Screening: Colonoscopy 2021 Colorectal Cancer Screening: Sigmoidoscopy 2021 Pneumococcal Vaccine: Pediat rics (0 to 5 Years) and At-Risk Patients (6 to 64 Years) Aged Out No longer eligible b ased on patient's age to complete this topic Insurance Care Teams Grapple Operator Relationship Specialty Start Date End Date Isaac Raphael MD [address] [address] PCP - General Internal Medicine 10/27/20
--- OUTSIDE RECORDS SUMMARY | 2024-06-08 08:00 | XMS_ITS | Encounter Summary ---
Author Organization [facility] Address [address] [place] [address] Care Team Providers Care Hospitality Internship Name Role Phone Isaac Raphael MD Primary Care Provider [phone] Anirudh Patiño MD, PHD Unavailable Unava ilable Kris Garcia MD Unavailable Natalia Irizarry PA-C Primary Care Provider + Encounter Details Date Type Department Care Team Description 04/07/2021 Release of Information Medical Records [address] [place] [id number] Abstract, Provider Social History Tobacco Use Types [...] on filedocumented in this encounter Care Teams Hospitality Internship Relationship Specialty Start Date End Date Isaac Raphael MD PCP - General Internal Medicine 03/12/20 04/19/23 Natalia Irizarry PA-C PCP - General Internal Medicine 04/20/23 Anirudh Patiño MD, PHD Surgeon Neurosurgery 03/03/21 Kris Garcia MD Specialist Cardiology 03/26/21 documented as of this encounter
--- OUTSIDE RECORDS SUMMARY | 2024-06-08 08:00 | XMS_ITS | Encounter Summary ---
Author Organization [facility] Address [address] [place] [address] Care Team Providers Care Central Office Operator Supervisor Name Role Phone Isaac Raphael MD Primary Care Provider [phone] Anirudh Patiño MD, PHD Unavailable Unava ilable Kris Garcia MD Unavailable Natalia Irizarry PA-C Primary Care Provider + Encounter Details Date Type Department Care Team Description 01/22/2021 Aquarium Specialist Report Medical Records [address] [place] [address] Bishop Goodrich PA-C Social History Tobacco Use Types Packs/Day Years [...] have Coronavirus / COVID-19? No / Unsure 01/19/2021 9:55 AM EDT documented as of this encounter Plan of Treatment Not on file documented as of this encounter Visit Diagnoses Not on filedocumented in this encounter Care Teams Central Office Operator Supervisor Relationship Specialty Start Date End Date Isaac Raphael MD PCP - General Internal Medicine 03/12/20 04/19/23 Natalia Irizarry PA-C PCP - General Internal Medicine 04/20/23 Anirudh Patiño MD, PHD Surgeon Neurosurgery 03/03/21 Kris Garcia MD Specialist Cardiology 03/26/21 documented as of this encounter
--- OUTSIDE RECORDS SUMMARY | 2024-06-08 08:00 | XMS_ITS | Encounter Summary ---
Author Organization [employer] [facility] Address [address] [place] [address] Care Team Providers Care Packing House Laborer Name Role Phone Isaac Raphael MD Primary Care Provider [phone] Delfina Natarajan MD Primary Care Provider Unavailabl e Isaac Raphael MD Primary Care Provider [phone] Anirudh Patiño MD, PHD Unavailable Unava ilable Kris Garcia MD Unavailable Natalia Irizarry PA-C Primary Care Provider + Encounter Details Date Type Department Care Team Description 07/18/2019 Orders Only Internal Medicine - [address], [address] [place] [address] Isaac Raphael MD [address] [place] [address] Social History Tobacco Use Types Packs/Day Years [...] on filedocumented in this encounter Care Teams Packing House Laborer Relationship Specialty Start Date End Date Isaac [...]
--- OUTSIDE RECORDS SUMMARY | 2024-06-08 08:00 | XMS_ITS | Encounter Summary ---
Author Organization [facility] Address [address] [place] [address] Care Team Providers Care Wolf Hunter Name Role Phone Isaac Raphael MD Primary Care Provider [phone] Delfina Natarajan MD Primary Care Provider Unavailabl e Isaac Raphael MD Primary Care Provider [phone] Anirudh Patiño MD, PHD Unavailable Unava ilable Kris Garcia MD Unavailable Natalia Irizarry PA-C Primary Care Provider + Reason for Referral * Non CHUCK (Priority) - Authorized/Booked Specialty Diagnoses / Procedures Referred By Contac t Referred To Contact Physiatry Procedures REFERRAL TO PHYSIATRY Isaac Raphael MD [address] [place] [address] Physi/[address] [address] Referral ID Status Reason Start Date Expiration Date V isits Requested Visits Authorized [id number] Authorized/B ooked 10/24/2019 10/23/2020 1 1 Reason for Visit * Reason Onset Date Comments REFERRAL 10/24/2019 Encounter Details Date Type Department Care Team Description 10/24/2019 Telephone Internal Medicine [facility] [address] [facility], [address] [place] [address] Isaac Raphael MD [address] [place] [address] REFERRAL Social History Tobacco Use Types Packs/Day [...] encounter Miscellaneous Notes * Telephone Encounter - Delores Be M.A. - 10/24/2019 9:29 AM EDT Patient is calling because shes in need of a referral for right shoulder pain for an injection, Please advice so I could make an appt. documented in this encounter Plan of Treatment Not on file documented as of this encounter Visit Diagnoses Not on filedocumented in this encounter Care Teams Wolf Hunter Relationship Specialty Start Date End Date Isaac [...]
--- OUTSIDE RECORDS SUMMARY | 2024-06-08 08:00 | XMS_ITS | Encounter Summary ---
Author Organization [facility] Address [address] [place] [address] Care Team Providers Care Microbiology Quality Control Technician Name Role Phone Isaac Raphael MD Primary Care Provider [phone] Anirudh Patiño MD, PHD Unavailable Unava ilable Kris Garcia MD Unavailable Natalia Irizarry PA-C Primary Care Provider + Reason for Visit * Reason Onset Date Comments Medication 05/03/2022 Encounter Details Date Type Department Care Team Description 05/03/2022 Telephone Pulmonology - [place] [address] [facility] [address] [place] [address] Viola Mathew APRN [address] [facility] [address] [place] [address] Medication Social History Tobacco Use Types Packs/Day Years [...] suspected to have Coronavirus/COVID-19? No / Unsure 04/30/2022 9:10 AM EST documented as of this encounter Miscellaneous Notes * Telephone Encounter - Rafita Sigala MD - 05/03/2022 3:47 PM EST Done- motrin needs to be done by PCP * Telephone Encounter - Tessie Lezama M.A. - 05/03/2022 1:57 PM EST Patient called requesting refills on her medications to be sent to [facility] updated documented in this encounter Plan of Treatment Not on file documented as of this encounter Visit Diagnoses Diagnosis Moderate persistent asthma, unspecified whether complicated documented in this encounter Care Teams Microbiology Quality Control Technician Relationship Specialty Start Date End Date Isaac Raphael MD PCP - General Internal Medicine 03/12/20 04/19/23 Natalia Irizarry PA-C PCP - General Internal Medicine 04/20/23 Anirudh Patiño MD, PHD Surgeon Neurosurgery 03/03/21 Kris Garcia MD Specialist Cardiology 03/26/21 documented as of this encounter
--- OUTSIDE RECORDS SUMMARY | 2024-06-08 08:00 | XMS_ITS | Encounter Summary ---
Author Organization [facility] Address [address] [place] [address] Care Team Providers Care Gear Lapping Machine Operator Name Role Phone Isaac Raphael MD Primary Care Provider [phone] Anirudh Patiño MD, PHD Unavailable Unava ilable Kris Garcia MD Unavailable Natalia Irizarry PA-C Primary Care Provider + Encounter Details Date Type Department Care Team Description 11/23/2021 Telephone Cardio PVC POC [address] [facility] [address] [place] [address] Kris Garcia MD [address] [place] [address] [id number] Social History Tobacco Use Types Packs/Day Years [...] In the last 10 days, have edison u been in contact with someone who was confirmed or suspected to have Coronavirus/COVID-19? No / Unsure 11/19/2021 7:38 AM EDT documented as of this encounter Miscellaneous Notes * Telephone Encounter - Doris Claudio R.N. - 11/24/2021 7:59 AM EDTFrom: Lisa Garcia To: Celia Hannah Sent: 11/23/2021 4:22 PM EDT Subject: lipid result Hi Ms. Hannah, Your triglyceride is slightly higher than previous level at 292. LDL is normal. Dr. Garcia documented in this encounter Plan of Treatment Not on file documented as of this encounter Visit Diagnoses Not on filedocumented in this encounter Care Teams Gear Lapping Machine Operator Relationship Specialty Start Date End Date Isaac Raphael MD PCP - General Internal Medicine 03/12/20 04/19/23 Natalia Irizarry PA-C PCP - General Internal Medicine 04/20/23 Anirudh Patiño MD, PHD Surgeon Neurosurgery 03/03/21 Kris Garcia MD Specialist Cardiology 03/26/21 documented as of this encounter
--- OUTSIDE RECORDS SUMMARY | 2024-06-08 08:01 | XMS_ITS | Encounter Summary ---
Author Organization [facility] Address [address] [place] [address] Care Team Providers Care Farm Technician Name Role Phone Anirudh Patiño MD, PHD Unavailable Unava ilable Kris Garcia MD Unavailable Natalia Irizarry PA-C Primary Care Provider + Encounter Details Date Type Department Care Team Description 06/14/2023 Visual Designer Report Medical Records [address] [place] [id number] Alirio Guo MD Social History Tobacco Use Types Packs/Day [...] on filedocumented in this encounter Care Teams Farm Technician Relationship Specialty Start Date End Date Natalia Irizarry PA-C PCP - General Internal Medicine 04/20/23 Anirudh Patiño MD, PHD Surgeon Neurosurgery 03/03/21 Kris Garcia MD Specialist Cardiology 03/26/21 documented as of this encounter
--- OUTSIDE RECORDS SUMMARY | 2024-06-08 08:01 | XMS_ITS | Encounter Summary ---
Author Organization [facility] Address [address] [place] [address] Care Team Providers Care Production Staff Worker Name Role Phone Isaac Raphael MD Primary Care Provider Anirudh Patiño MD, PHD Unavailable Unava ilable Kris Garcia MD Unavailable Natalia Irizarry PA-C Primary Care Provider + Encounter Details Date Type Department Care Team Description 09/14/2020 Hospital Medical Records [address] [place] [address] Shabbir Burciaga MD [address] [place] [address] Social History Tobacco Use Types Packs/Day Years [...] have Coronavirus / COVID-19? No / Unsure 08/19/2020 3:12 PM EDT documented as of this encounter Plan of Treatment Not on file documented as of this encounter Visit Diagnoses Not on filedocumented in this encounter Care Teams Production Staff Worker Relationship Specialty Start Date End Date Isaac Raphael MD PCP - General Internal Medicine 03/12/20 04/19/23 Natalia Irizarry PA-C PCP - General Internal Medicine 04/20/23 Anirudh Patiño MD, PHD Surgeon Neurosurgery 03/03/21 Kris Garcia MD Specialist Cardiology 03/26/21 documented as of this encounter
--- OUTSIDE RECORDS SUMMARY | 2024-06-08 08:01 | XMS_ITS | Clinical Summary ---
Author Organization [facility] Address [address] [place] [address] Care Team Providers Care Sling Operator Name Role Phone Anirudh Patiño MD, PHD Unavailable Unava ilable Kris Garcia MD Unavailable Natalia Irizarry PA-C Primary Care Provider + Allergies Active Allergy Reactions Severity Noted Date Comments Influenza Vaccines Hives/Urticaria 12/28/2012 Iv Contrast Dye Nausea and Vomiting 02/03/2016 Cat scan dye Morphine hallucinations High 01/08/2022 Oxycodone-Acetaminophen hallucinations High 01/09/20 22 Medications Medication Sig Dispensed Refills Start Date End Date Status loratadine (CLARITIN) 10 MG tablet Take 1 Tab by mouth daily as needed for Allergies. 14 Tab 0 01/24/2019 Active Nebulizers (MY MDI PORTABLE NEBULISER) Misc 1 Units by Does not apply route 2 times daily as needed (sob). 1 Each 0 06/29/2019 Active pantoprazole (PROTONIX) 40 MG tablet Take 40 mg by mouth daily. 0 08/12/2020 Active Multiple Vitamin (Multivitamin Adult) Tab Take by mouth. 0 Active diphenhydrAMINE (BENADRYL) 25 MG tablet Take 25 mg by mouth every 8 hours as needed. 0 Active estradiol (ESTRACE VAGINAL) 0.1 MG/GM vaginal cream Apply 1G PV nightly for 2 weeks and then 1-2 nights a week thereafter 42.5 g 3 04/30/2022 Active albuterol (PROVENTIL) (2.5 MG/3ML) 0.083% nebulizer solutionIndications :Moderate persistent asthma, unspecified whether complicated Take 1 Vial by nebulization every 6 hours as needed for Wheezing. 300 mL 4 05/03/2022 Active ALBUTEROL SULFATE 108 (90 Base) MCG/ACT Aero SolnIndications:Mod erate persistent asthma, unspecified whether complicated Inhale 2 Puffs into the lungs every 6 hours as needed for Cough or Wheezing. 17 g 5 05/03/2022 Active clotrimazole-betame thasone (LOTRISONE) cream APPLY SPARINGLY TO AFFECTED AREA TWICE A DAY FOR UP TO 2 WEEKS 30 g 0 07/26/2022 Active Meclizine HCl 25 MG TabIndications:BPPV (benign paroxysmal positional vertigo), bilateral Take 1 Tablet by mouth 2 times daily as needed (vertigo). 60 Tablet 0 05/04/2023 Active cetirizine (ZYRTEC) 10 MG tabletIndications:A llergic dermatitis TAKE 1 TABLET BY MOUTH DAILY NEEDED FOR ALLERGIES. 90 Tablet 1 10/18/2023 Active fluticasone (FLOVENT HFA) 110 MCG/ACT inhalerIndications: Moderate persistent asthma, unspecified whether complicated Inhale 2 Puffs into the lungs 2 times daily for 30 days. 1 g 11 01/26/2024 Active Active Problems Problem Noted Date Prediabetes 08/18/2023 Hyperlipidemia 05/11/2021 Last Assessment & Plan: Most recent lipid profile was from 2019 and triglyceride was mildly elevated. I will repeat a fasting lipid. Palpitations 05/07/2021 Last Assessment & Plan: Her symptoms are more consistent with benign premature heartbeats. Holter monitor was unremarkable and her symptoms were also mild. Her cardiac physical exam is normal. I tried to reassure her. I will not pursuing further cardiac testing. Obesity (BMI 30-39.9) 03/17/2021 ASCUS with positive high risk HPV cervic al 07/20/2019 Overview: Pap 05/2019 - ASCUS, positive HPV Colpo 07/18/2019 - biopsies at 12:00 and 9:00 chronic cervicitis, no dysplasia Easy bruising 12/06/2018 Acute pain of right shoulder 12/06/2018 Paresthesias in right hand 10/18/2017 Paresthesias in left hand 10/18/2017 History of Helicobacter pylori infection 11/01/2014 Vitamin D deficiency 08/15/2013 GERD (gastroesophageal reflux disease) 1 CTS (carpal tunnel syndrome) 11/19/2011 Back pain 11/19/2011 Constipation 11/19/2011 Fibromyalgia 11/19/2011 Cervical dysplasia 11/19/2011 Resolved Problems Problem Noted Date Resolved Date Esophagitis, mild distal 01/25/2012 018 Overview: seen on EGD 12/02/2011 S/P cholecystectomy 10/18/2011 04/06/2016 Immunizations Name Administration Dates Next Due Hepatitis-A (>19YRS) 12/23/2008,10/21/2008,01/19 Influenza (> 6 Months) 02/13/2008 TD (STATE SUPPLIED FOR ADULTS AND CHILDREN) 09/26 Tdap 12/28/2012 Zostavax 10/24/2022 Family History Medical History Relation Name Comments Blindness Aunt Cataract Aunt Cervical Cancer Mother ?precancer?c ancer of ?cervix Diabetes Mother Hypertension Mother [place] Mother Cervical Cancer Mother's side 1 1st cousi n Brain Cancer Mother's side 2 Aunt Uterine Cancer Mother's side 3 Aunt CA Breast Negative Hx CA Colon Negative Hx CA Ovarian Negative Hx Glaucoma Negative Hx Macular Degeneration Negative Hx Strabismus Negative Hx Relation Name Status Comments Aunt Father Alive dementia Mother Alive Mother's side 1 Mother's side 2 Mother's side 3 Social History Tobacco Use Types Packs/Day Years Used Date Smoking Tobacco: Former Cigarettes Q uit: 03/28/1998 Smokeless Tobacco: Former Tobacco Cessation:Counseling Given: Not Answered Alcohol Use Standard Drinks/Week Comments No 0 (1 standard drink = 0.6 oz pur e alcohol) Sex Assigned at Date Recorded Female 09/06/2022 9:59 PM E DT Job Start Date Occupation Industry Not on file Not on file Not on file Last Filed Vital Signs Vital Sign Reading Time Taken Comments Blood Pressure 114/68 01/26/2024 10:25 AM EDT Pulse 100 01/26/2024 10:25 AM EDT Temperature 36.4 ??C (97.6 ??F) 01/26/2024 1 0:25 AM EDT Respiratory Rate 16 01/26/2024 10:2 5 AM EDT Oxygen Saturation 100% 01/26/2024 10: 25 AM EDT Inhaled Oxygen Concentration - - Weight 103.2 kg (227 lb 9.6 oz) 024 10:25 AM EDT Height 160 cm (5' 3 ) 01/26/2024 10:25 AM EDT Body Mass Index 40.32 01/26/2024 10:25 AM EDT Plan of Treatment Health Maintenance Due Date Last Done Comments Covid-19 Vaccine (#1) 03/14/1973 SHINGLES VACCINE (2 of 3) 12/19/2022 10/24/2022 DTAP/TDAP/TD (2 - Td or Tdap) 12/28/2022 12/28/2012, 10/21/2008 INFLUENZA (#1) 2023 02/24/2016 (Refu sed), 02/13/2008 MAMMOGRAM 01/26/2024 01/25/2023, 05/26, 10/01/2019, Additional history exists CERVICAL CANCER SCREENING 02/03/20242020, 06/11/2019, 04/06/2016, Additional history exists BMI CHECK/ADVISE 03/28/2024 08/18/2023, 09/2023, 04/18/2023, Additional history exists DEPRESSION SCREENING/FOLLOWUP 03/28/2024 SOCIAL NEEDS SCREENING 03/28/2024 BASELINE HEALTH EXAM 40-64 04/25/202504/25, 04/18/2023, 12/17/2021, Additional history exists CHOLESTEROL SCREENING 09/04/2028 09/05/2023 , 04/25/2023, 11/19/2021, Additional history exists COLON CANCER SCREENING 06/12/2030 06/12/2020 PNEUMOCOCCAL VACCINE FOR HIG H RISK PATIENTS (#1) 2037 Care Teams Sling Operator Relationship Specialty Start Date End Date Natalia Irizarry PA-C PCP - General Internal Medicine 04/20/23 Anirudh Patiño MD, PHD Surgeon Neurosurgery 03/03/21 Kris Garcia MD Specialist Cardiology 03/26/21
--- OUTSIDE RECORDS SUMMARY | 2024-06-08 08:01 | XMS_ITS | Encounter Summary ---
Author Organization [facility] Address [address] [place] [address] Care Team Providers Care Resident Assistant Cna Name Role Phone Isaac Raphael MD Primary Care Provider [phone] Anirudh Patiño MD, PHD Unavailable Unava ilable Kris Garcia MD Unavailable Natalia Irizarry PA-C Primary Care Provider + Encounter Details Date Type Department Care Team Description 03/26/2020 Bicycle Subassembler Report Medical Records [address] [place] [id number] Neeta Wyatt Social History Tobacco Use Types Packs/Day Years [...] on filedocumented in this encounter Care Teams Resident Assistant Cna Relationship Specialty Start Date End Date Isaac Raphael MD PCP - General Internal Medicine 03/12/20 04/19/23 Natalia Irizarry PA-C PCP - General Internal Medicine 04/20/23 Anirudh Patiño MD, PHD Surgeon Neurosurgery 03/03/21 Kris Garcia MD Specialist Cardiology 03/26/21 documented as of this encounter
--- OUTSIDE RECORDS SUMMARY | 2024-06-08 08:01 | XMS_ITS | Encounter Summary ---
Author Organization [facility] Address [address] [place] [address] Care Team Providers Care Net Sql Developer Name Role Phone Isaac Raphael MD Primary Care Provider Anirudh Patiño MD, PHD Unavailable Unava ilable Kris Garcia MD Unavailable Natalia Irizarry PA-C Primary Care Provider + Encounter Details Date Type Department Care Team Description 10/27/2020 Documentation Engineer Report Medical Records [address] [place] [id number] Vince Johnston MD [address] [place] [address] Social History Tobacco Use Types Packs/Day Years [...] have Coronavirus / COVID-19? No / Unsure 10/27/2020 3:35 PM EDT documented as of this encounter Plan of Treatment Not on file documented as of this encounter Visit Diagnoses Not on filedocumented in this encounter Care Teams Net Sql Developer Relationship Specialty Start Date End Date Isaac Raphael MD PCP - General Internal Medicine 03/12/20 04/19/23 Natalia Irizarry PA-C PCP - General Internal Medicine 04/20/23 Anirudh Patiño MD, PHD Surgeon Neurosurgery 03/03/21 Kris Garcia MD Specialist Cardiology 03/26/21 documented as of this encounter
--- OUTSIDE RECORDS SUMMARY | 2024-06-08 08:01 | XMS_ITS | Encounter Summary ---
Author Organization [facility] [employer] [facility] Address [address] [place] [address] Care Team Providers Care Hydraulic Modeling Engineer Name Role Phone Isaac Raphael MD Primary Care Provider [phone] Anirudh Patiño MD, PHD Unavailable Unava ilable Kris Garcia MD Unavailable Natalia Irizarry PA-C Primary Care Provider + Encounter Details Date Type Department Care Team Description 09/24/2020 Release of Information Medical Records [address] [place] [id number] Abstract, Provider Social History Tobacco Use Types [...] on file documented as of this encounter Nursing Notes * Madhavi Osei - 09/24/2020 12:23 PM EDT AUTHORIZATION TO OBTAIN MEDICAL RECORDS FAXED TO [facility] SURGE[facility] documented in this encounter Plan of Treatment Not on file documented as of this encounter Visit Diagnoses Not on filedocumented in this encounter Care Teams Hydraulic Modeling Engineer Relationship Specialty Start Date End Date Isaac Raphael MD PCP - General Internal Medicine 03/12/20 04/19/23 Natalia Irizarry PA-C PCP - General Internal Medicine 04/20/23 Anirudh Patiño MD, PHD Surgeon Neurosurgery 03/03/21 Kris Garcia MD Specialist Cardiology 03/26/21 documented as of this encounter
--- OUTSIDE RECORDS SUMMARY | 2024-06-08 08:01 | XMS_ITS | Encounter Summary ---
Author Organization [facility] Address [address] [place] [address] Care Team Providers Care Cruise Consultant Name Role Phone Isaac Raphael MD Primary Care Provider [phone] Anirudh Patiño MD, PHD Unavailable Unava ilable Kris Garcia MD Unavailable Natalia Irizarry PA-C Primary Care Provider + Reason for Visit * Reason Onset Date Comments Prior Authorization 03/24/2023 Encounter Details Date Type Department Care Team Description 03/24/2023 Telephone Pulmonology - [place] [address] [facility] [address] [place] [phone] Rafita Sigala MD [address] [place] [phone] Prior Authorization Social History Tobacco Use Types [...] Telephone Encounter - Shad Mullins CMA - 04/04/2023 3:08 PM EST Pt informed. * Telephone Encounter - Rafita Sigala MD - 03/30/2023 6:40 PM EST I m sending arnuity- please let pt know * Telephone Encounter - Shad Mullins CMA - 03/29/2023 1:16 PM EST Please review and advise * Telephone Encounter - Dara Austin M.A. - 03/29/2023 11:10 AM EST Prior authorization for the fluticasone was denied Pt must try 2 covered corticosteriods Arnuity Asmanex hfa Asmanex twisthaler Pulmicort Powder and solution Thank you Please reply back to [id number] Prior Auth Pool Dara Sam [facility] Prior Authorization Ext [id number] * Telephone Encounter - Dara Austin M.A. - 03/24/2023 12:38 PM EST Prior authorization for the fluticasone inhaler was [facility] today [facility] Dx code J45.40 Moderate persistent asthma unspecified whether complicated. Trials Albuterol sulfate proair * Telephone Encounter - Emma Rodriguez - 03/24/2023 9:33 AM EST Prior auth needed for: FLUTICASONE PROPIONATE HFA 110 MCG/ACT AEROSOL Castaneda: [id number] documented in this encounter Plan of Treatment Not on file documented as of this encounter Visit Diagnoses Diagnosis Moderate persistent asthma, unspecified whether complicated- Primary documented in this encounter Care Teams Cruise Consultant Relationship Specialty Start Date End Date Isaac Raphael MD PCP - General Internal Medicine 03/12/20 04/19/23 Natalia Irizarry PA-C PCP - General Internal Medicine 04/20/23 Anirudh Patiño MD, PHD Surgeon Neurosurgery 03/03/21 Kris Garcia MD Specialist Cardiology 03/26/21 documented as of this encounter
--- OUTSIDE RECORDS SUMMARY | 2024-06-08 08:01 | XMS_ITS | Encounter Summary ---
Author Organization [facility] Address [address] [place] [address] Care Team Providers Care Animation Artist Name Role Phone Isaac Raphael MD Primary Care Provider [phone] Anirudh Patiño MD, PHD Unavailable Unava ilable Kris Garcia MD Unavailable Natalia Irizarry PA-C Primary Care Provider + Encounter Details Date Type Department Care Team Description 01/18/2023 Community Representative Report Medical Records [address] [place] [id number] Neeta Wyatt Social History Tobacco Use Types [...] on filedocumented in this encounter Care Teams Animation Artist Relationship Specialty Start Date End Date Isaac Raphael MD PCP - General Internal Medicine 03/12/20 04/19/23 Natalia Irizarry PA-C PCP - General Internal Medicine 04/20/23 Anirudh Patiño MD, PHD Surgeon Neurosurgery 03/03/21 Kris Garcia MD Specialist Cardiology 03/26/21 documented as of this encounter
--- OUTSIDE RECORDS SUMMARY | 2024-06-08 08:01 | XMS_ITS | Encounter Summary ---
Author Organization [facility] Address [address] [place] [address] Care Team Providers Care General Science Teacher Name Role Phone Isaac Raphael MD Primary Care Provider [phone] Anirudh Patiño MD, PHD Unavailable Unava ilable Kris Garcia MD Unavailable Natalia Irizarry PA-C Primary Care Provider + Encounter Details Date Type Department Care Team Description 01/25/2023 Orders Only Medical Records [address] [place] [address] Natalia Irizarry PA-C [address] [place] [phone] Social History Tobacco Use Types Packs/Day Years [...] Name Priority Date/Time Associated Diagnosis Comments OUTSIDE MAMMO Routine 01/25/2023 documented in this encounter Results * OUTSIDE MAMMO (01/25/2023) Natalia Irizarry PA-C RADIOLOGY documented in this encounter Visit Diagnoses Not on filedocumented in this encounter Care Teams General Science Teacher Relationship Specialty Start Date End Date Isaac Raphael MD PCP - General Internal Medicine 03/12/20 04/19/23 Natalia Irizarry PA-C PCP - General Internal Medicine 04/20/23 Anirudh Patiño MD, PHD Surgeon Neurosurgery 03/03/21 Kris Garcia MD Specialist Cardiology 03/26/21 documented as of this encounter
--- OUTSIDE RECORDS SUMMARY | 2024-06-08 08:01 | XMS_ITS | Encounter Summary ---
Author Organization [facility] [employer] [facility] Address [address] [place] [address] Care Team Providers Care Shrink Pit Operator Name Role Phone Isaac Raphael MD Primary Care Provider [phone] Anirudh Patiño MD, PHD Unavailable Unava ilable Kris Garcia MD Unavailable Natalia Irizarry PA-C Primary Care Provider + Encounter Details Date Type Department Care Team Description 08/13/2020 Orders Only Internal Medicine - [address], [address] [place] [address] Isaac Raphael MD [address] [place] [address] Social History Tobacco Use Types Packs/Day Years [...] have Coronavirus / COVID-19? No / Unsure 08/13/2020 9:00 AM EDT documented as of this encounter Plan of Treatment Not on file documented as of this encounter Procedures Procedure Name Priority Date/Time Associated Diagnosis Comments OUTSIDE PLAIN FILM Routine 08/13/2020 documented in this encounter Results * OUTSIDE PLAIN FILM (08/13/2020) Isaac Raphael MD RADIOLOGY documented in this encounter Visit Diagnoses Not on filedocumented in this encounter Care Teams Shrink Pit Operator Relationship Specialty Start Date End Date Isaac Raphael MD PCP - General Internal Medicine 03/12/20 04/19/23 Natalia Irizarry PA-C PCP - General Internal Medicine 04/20/23 Anirudh Patiño MD, PHD Surgeon Neurosurgery 03/03/21 Kris Garcia MD Specialist Cardiology 03/26/21 documented as of this encounter
--- OUTSIDE RECORDS SUMMARY | 2024-06-08 08:01 | XMS_ITS | Encounter Summary ---
Author Organization [facility] Address [address] [place] [address] Care Team Providers Care Wheel And Pinion Inspector Name Role Phone Anirudh Patiño MD, PHD Unavailable Unava ilable Kris Garcia MD Unavailable Natalia Irizarry PA-C Primary Care Provider + Encounter Details Date Type Department Care Team Description 04/29/2023 Orders Only Internal Medicine - [address], [address] [place] [address] Natalia Irizarry PA-C [address] [place] [phone] Chronic right shoulder pain Social History Tobacco Use Types Packs/Day [...] Name Priority Date/Time Associated Diagnosis Comments CHG RADEX SHOULDER COMPLETE MINIMUM 2 VIEWS Routine 04/29/2023 Chronic right shoulder pain documented in this encounter Results * X-RAY EXAM OF SHOULDER, COMPLETE (04/29/2023) Natalia Irizarry PA-C RADIOLOGY documented in this encounter Visit Diagnoses Diagnosis Chronic right shoulder pain Pain in joint, shoulder region documented in this encounter Care Teams Wheel And Pinion Inspector Relationship Specialty Start Date End Date Natalia Irizarry PA-C PCP - General Internal Medicine 04/20/23 Anirudh Patiño MD, PHD Surgeon Neurosurgery 03/03/21 Kris Garcia MD Specialist Cardiology 03/26/21 documented as of this encounter
--- OUTSIDE RECORDS SUMMARY | 2024-06-08 08:01 | XMS_ITS | Encounter Summary ---
Author Organization [facility] [employer] [facility] Address [address] [place] [address] Care Team Providers Care Overnight Cashier Name Role Phone Isaac Raphael MD Primary Care Provider [phone] Anirudh Patiño MD, PHD Unavailable Unava ilable Kris Garcia MD Unavailable Natalia Irizarry PA-C Primary Care Provider + Encounter Details Date Type Department Care Team Description 03/12/2020 Release of Information Medical Records [address] [place] [id number] [place] [address] Social History Tobacco Use Types Packs/Day Years [...] on filedocumented in this encounter Care Teams Overnight Cashier Relationship Specialty Start Date End Date Isaac Raphael MD PCP - General Internal Medicine 03/12/20 04/19/23 Natalia Irizarry PA-C PCP - General Internal Medicine 04/20/23 Anirudh Patiño MD, PHD Surgeon Neurosurgery 03/03/21 Kris Garcia MD Specialist Cardiology 03/26/21 documented as of this encounter
[2024-06-08 08:14] VITALS: BP 158/72; PULSE 94; BMI 37.9
== END 2024-06-08 08:31 | disposition home or self-care (01) ==
LOC: HO.HGI 07:58
PROVIDERS: PCP Internal Medicine; Visit Provider Nurse Practitioner Family
DX: K59.09 Other constipation (principal); K21.9 Gastro-esophageal reflux disease without esophagitis; R14.0 Abdominal distension (gaseous); R10.30 Lower abdominal pain, unspecified
CPT/HCPCS: 99214; G2211

== ENCOUNTER → 2024-06-08 07:57 | Outpatient (BNVA) | payer OTHER, SELFPAY | PROVIDERS: PCP Internal Medicine; Visit Provider Nurse Practitioner Family | DX: K21.9 Gastro-esophageal reflux disease without esophagitis (principal); K59.09 Other constipation; R14.0 Abdominal distension (gaseous); R10.30 Lower abdominal pain, unspecified | CPT/HCPCS: 99212 ==

== ENCOUNTER 2024-08-22 08:01 | Outpatient (REF) | payer OTHER, SELFPAY ==
--- NOTE | ~2024-08-22 | FL_ITS ---
EXAMINATION: XR UPPER GI SERIES WITH SMALL BOWEL CLINICAL INFORMATION: Dysphagia. Abdominal pain COMPARISON: None available. TECHNIQUE: A KUB was performed prior exam. Subsequently single contrast upper GI exam was performed an upright position as patient was unable to tolerate thick barium and effervescent gas. Subsequently two glasses of thin barium was administered and small bowel follow-through images were obtained sequentially. FINDINGS: KUB: A single supine view of the abdomen reveals scattered stool and gas in colon without distention. No radiopaque calculi seen. Few scattered small fluid seen in the pelvis. No organomegaly. No gross bony abnormality. Following oral administration of thin barium there is normal propagation bolus from the oral cavity through the pharynx, esophagus into stomach stomach without any obstruction, narrowing or stricture. No laryngeal penetration or aspiration seen. Initially patient had difficulty with thick barium and hence the change to thin barium On placing patient in supine and prone lying the stomach is somewhat distended. The course, caliber and peristalsis stomach is normal. The mucosal pattern of stomach and the duodenum is normal. No intraluminal filling defects seen. The soft tissues are normal. Sequential images of the small bowel were obtained and reveals significant delay in the transit time of 210 minutes. The caliber and the mucosal pattern of the small bowel loops are normal. No extrinsic impression or intraluminal filling defects seen. The appendix is not visualized consistent with surgical removal. The ileocecal junction is normal. FLUOROSCOPY TIME: 3 minutes and 36 seconds DOSE AREA PRODUCT: 3033 uGy-m2 (microgray-meter squared) FL/FL upper GI small bowel IMPRESSION: Unremarkable upper GI single contrast exam. Delayed small bowel transit time likely due to inadequate quantitative ingestion of barium . No abnormality seen involving the IC junction of the small bowel. Appendix not visualized secondary to surgical removal. Electronically signed by: Gonzalo Snell MD 08/22/2024 02:48 PM EDT
--- OUTSIDE RECORDS SUMMARY | 2024-08-22 08:05 | XMS_ITS | Encounter Summary ---
Author Organization [facility] [employer] [facility] Address [address] [place] [address] Care Team Providers Care District Resource Officer Name Role Phone Isaac Raphael MD Primary Care Provider [phone] Anirudh Patiño MD, PHD Unavailable Unava ilable Kris Garcia MD Unavailable Natalia Irizarry PA-C Primary Care Provider + Encounter Details Date Type Department Care Team Description 04/28/2021 Orders Only Cardio PVC POC [address] [facility] [address] [place] [address] Kris Garcia MD [address] [place] [address] [id number] Social History Tobacco Use Types Packs/Day Years [...] on filedocumented in this encounter Care Teams District Resource Officer Relationship Specialty Start Date End Date Isaac Raphael MD PCP - General Internal Medicine 03/12/20 04/19/23 Natalia Irizarry PA-C PCP - General Internal Medicine 04/20/23 Anirudh Patiño MD, PHD Surgeon Neurosurgery 03/03/21 Kris Garcia MD Specialist Cardiology 03/26/21 documented as of this encounter
== END 2024-08-22 08:02 | disposition home or self-care (01) ==
LOC: HO.XRAY 08:01
PROVIDERS: Visit Provider Nurse Practitioner Family
DX: R13.10 Dysphagia, unspecified (principal)
CPT/HCPCS: 74240; 74248

== ENCOUNTER → 2024-08-22 08:03 | Outpatient (BNV) | payer OTHER, SELFPAY | PROVIDERS: Visit Provider Radiology Diagnostic Radiology | DX: R13.10 Dysphagia, unspecified (principal); R10.9 Unspecified abdominal pain | CPT/HCPCS: 74240; 74248 ==

== ENCOUNTER 2024-10-10 08:22 | Outpatient (AMB) | payer OTHER, SELFPAY ==
--- OUTSIDE RECORDS SUMMARY | 2024-10-10 08:26 | XMS_ITS | Clinical Summary ---
Author Organization [facility] Facility Address [address] [place] [address], [place] [address] Care Team Providers Care Bus And Sys Integration Senior Manager Name Role Phone Isaac Raphael MD Primary Care Provider [phone] Allergies Active Allergy Reactions Criticality Noted Date [...] Constipation 11/19/2011 10/27/2020 Fibromyalgia 11/19/2011 10/27/2020 Immunizations Immunization Administration Dates Next Due Hepatitis A 12/23/2008,10/21/2008,01/19/2005 [...] (1 of 3 - 19+ 3-dose series) 09/12 Colorectal Cancer Screening: Annual FOBT 2021 Colorectal Cancer Screening: Colonoscopy 2021 Colorectal Cancer Screening: Sigmoidoscopy 2021 Pneumococcal Vaccine: 50+ Years (1 of 1 - PCV) 023 Insurance Care Teams Bus And Sys Integration Senior Manager Relationship Specialty Start Date End Date Isaac Raphael MD [address] [address] PCP - General Internal Medicine 10/27/20
--- OUTSIDE RECORDS SUMMARY | 2024-10-10 08:26 | XMS_ITS | Encounter Summary ---
Author Organization [employer] [facility] Address [address] [place] [address] Care Team Providers Care Processing Specialist Name Role Phone Isaac Raphael MD Primary Care Provider [phone] Anirudh Patiño MD, PHD Unavailable Unava ilable Kris Garcia MD Unavailable Natalia Irizarry PA-C Primary Care Provider + Encounter Details Date Type Department Care Team Description 04/28/2021 Orders Only Cardio PVC POC [address] [facility] [address] [place] [address] Kris Garcia MD [address] [place] [address] [id number] Social History Tobacco Use Types Packs/Day Years [...] on filedocumented in this encounter Care Teams Processing Specialist Relationship Specialty Start Date End Date Isaac Raphael MD PCP - General Internal Medicine 03/12/20 04/19/23 Natalia Irizarry PA-C PCP - General Internal Medicine 04/20/23 Anirudh Patiño MD, PHD Surgeon Neurosurgery 03/03/21 Kris Garcia MD Specialist Cardiology 03/26/21 documented as of this encounter
--- OUTSIDE RECORDS SUMMARY | 2024-10-10 08:26 | XMS_ITS | Encounter Summary ---
Author Organization [facility] Address [address] [place] [address] Care Team Providers Care Fraud Investigator Name Role Phone Natalia Irizarry Primary Care Provider + Encounter Details Date Type Department Care Team (Late Contact Info) Description 2024 Telephone Internal Medicine - [place] [address] [address] Natalia Irizarry PA [address] [address] Social History Tobacco Use Types Packs/Day Years [...] on file Sexual Orientation Not on file documented as of this encounter Plan of Treatment Upcoming Encounters Date Type Department Care Team (Late Contact Info) Description 11/30/2024 10:00 AM EDT Office Visit Obstetrics [facility]cology [place] [address] [place] [address] Vivi Turcios, JOSELIN [address] [place] [address] 01/29/2025 9:45 AM EST Office Visit Pulmonolgy - [place] [address] [address] Rafita Sigala MD [address] [address] 02/28/2025 9:45 AM EST Office Visit Internal Medicine - [address] [phone] Natalia Irizarry PA [address] [place] [address] documented as of this encounter Visit Diagnoses Not on filedocumented in this encounter Care Teams Fraud Investigator Relationship Specialty Start Date End Date Natalia Irizarry PA [address] [place] [address] PCP - General 04/20/23 documented as of this encounter
--- OUTSIDE RECORDS SUMMARY | 2024-10-10 08:26 | XMS_ITS | Clinical Summary ---
Author Organization [facility] Address [address] [place] [address] Care Team Providers Care Securities Underwriter Name Role Phone Isaac Raphael MD Primary [...] Tdap) 12/28/2022 12/28/2012, 10/21/2008 Influenza Vaccine (#1) 2024 02/13/2008 Pneumococcal Vaccine Aged Out No long er eligible based on patient's age to complete this topic RSV Ped < 20 months Aged Out No longe r eligible based on patient's age to complete this topic Care Teams Securities Underwriter Relationship Specialty Start Date End Date Isaac Raphael MD PCP - General Internal Medicine 12/28/19
--- NOTE | 2024-10-10 08:29 | A.OFFVIS_ITS ---
Vital Signs 10/10/24 08:30 Height 5 ft 4 in Weight 207 lb BMI 35.5 BP 126/71 Blood Pressure Location Lt brachial Position Sitting Pulse 94 Pulse Oximetry (%) 94 Oxygen Delivery Method Room Air Intake Visit Reasons: 3m GERD Intake Note: Patient 3 month follow up for GERD. BS results Patient cc: GERD better with medication, abdominal discomfort with abdominal pain on and off, poor BM and denies any other GI issues. Edge Burnisher Uppers Required: No Accompanied by: Self / Same As Patient Allergies NARCOTICS Adverse Reaction (Unknown, Uncoded 06/08/24 08:00) NAUSEA,VOMITING HPI HPI 3m GERD: Details: LAST VISIT: Chronic constipation Acid reflux Postprandial abdominal bloating Abdominal pain Plan Will send patient for upper GI series with barium swallow. Patient will stop pantoprazole and start taking Nexium. Avoid dietary triggers and late night snacking. Staying upright for minimum 3 hours after meals discussed with patient. Patient will start taking Dulcolax daily. Increase fluid intake and activity to promote better bowel motility. Patient will follow-up in 3 months, sooner on as needed basis. She is agreeable to this plan and verbalizes understanding of instructions. She was given the opportunity to ask questions and all questions answered. ? Thank you for allowing me to participate in her care Orders FL upper GI small bowel Today R13.10 New bisacodyl (Dulcolax (bisacodyl)) 10 mg (2 x 5 mg) PO BEDTIME 60 tabs 4RF esomeprazole magnesium (Nexium) 40 mg PO DAILY 30 caps 2RF K21.9 famotidine (Pepcid) 20 mg PO BEDTIME 30 tabs 3RF K21.9 Discontinued bisacodyl (Dulcolax (bisacodyl)) Discontinued Reason: Patient Completed Course 10 mg NV DAILY PRN 20 ea 0RF constipation pantoprazole Discontinued Reason: Doctor's Order 40 mg PO DAILY 90 tabs 3RF TODAY'S VISIT Patient is here today for follow-up and to discuss upper GI series with barium swallow. No reflux identified. Patient is taking Nexium and reports that her symptoms of acid reflux are suppressed. Patient still has epigastric pain after eating depending on what she eats. Trying to avoid dietary triggers. She is taking Zepbound and is losing weight. Patient is trying to eat healthy. She is doing more shakes and eating smaller meals. Still feels full after eating. Using Dulcolax as needed. However she does not feel like she empties co mpletely. Patient reports that her stool is very soft and not formed. Denies melena, hematochezia. Reports occasional dyspepsia without dysphagia or odynophagia. Reports postprandial abdominal bloating. COUNT INCLUDES THE [facility] Medical History Asthma Chronic constipation Diverticulosis large intestine w/o perforation or abscess w/o bleeding Surgical History Hx of shoulder surgery (~02/25/20) Hx of abdominoplasty History of hysterectomy Hx of cholecystectomy History of appendectomy History of Hx of endoscopy Family History Father No problems noted. 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 Review of Systems Const Denies weight gain and Denies weight loss ENT Reports no additional complaints, Denies dysphagia and Denies odynophagia Card Reports no additional complaints Resp Reports no additional complaints GI Reports abdominal pain, Denies belching, Denies melena, Reports bloating, Denies change in bowel habits, Reports constipation, Denies dysphagia, Denies excessive flatus, Denies dyspepsia, Reports heartburn, Denies diarrhea, Reports loose stools, Denies nausea, Denies odynophagia and Denies vomiting Reports no additional complaints Musc Reports no additional complaints Neuro Reports no additional complaints Psych Reports no additional complaints Endo Reports no additional complaints Physical Exam Vital Signs: Last Vital Signs Pulse 94 07/16/25 08:30 BP 126/71 10/10/24 08:30 Pulse Ox 94 10/10/24 08:30 Oxygen Delivery Method Room Air 10/10/24 08:30 BMI result Body Mass Index 35.5 Const General: healthy appearing and no acute distress Nutritional Appearance: obese Orientation/consciousness: patient oriented x3 Resp Effort & Inspection: normal respiratory effort, able to speak in complete sentences, no tracheal deviation and symmetric chest movement Auscultation: clear to auscultation bilaterally Cardio Rate: regular rate GI Inspection: Yes normal to inspection, No distended and Yes obesity Palpation (GI): Soft to palpation, not firm, nontender and No hepatosplenomegaly present Auscultation: normal bowel sounds General: Yes no CVA tenderness Back/Spine/Pelvis Back: no CVA tenderness Skin General skin exam: elasticity normal, turgor normal and dry skin Neuro General: patient oriented x3 Psych Appearance: grossly normal Mental Status: mental status grossly normal Results Reviewed Results Reviewed: UPPER GI SERIES WITH BARIUM SWALLOW IMPRESSION: Unremarkable upper GI single contrast exam. Delayed small bowel transit time likely due to inadequate quantitative ingestion of barium . No abnormality seen involving the IC junction of the small bowel. Appendix not visualized secondary to surgical removal. Assessment & Plan Assessment & Plan (1) Acid reflux: Code(s): K21.9 - Gastro-esophageal reflux disease without esophagitis Category: Medical Qualifiers: Esophagitis presence: esophagitis presence not specified Qualified Code(s): K21.9 - Gastro-esophageal reflux disease without esophagitis (2) Chronic constipation: Code(s): K59.09 - Other constipation Category: Medical (3) Postprandial epigastric pain: Code(s): R10.13 - Epigastric pain (4) Postprandial abdominal bloating: Code(s): R14.0 - Abdominal distension (gaseous) Plan Patient will continue Nexium in the morning and famotidine at bedtime. She will increase fiber intake and take fiber supplement in the morning. She will still take with Dulcolax in the evening to help her empty her bowels completely. Avoid dietary triggers late at snacking. Staying upright for minimal 3 hours after meals discussed with patient. Patient will increase fluid intake and activity to promote better bowel motility periods will send her for gastric emptying study to rule out gastroparesis, although patient is taking Zepbound and patient might be feeling this way due to the medication. Follow-up in 4 months, sooner on as needed basis. She is agreeable to this plan and verbalizes understanding of instructions. She was given the opportunity to ask questions and all questions answered. Thank you for allowing me to participate in her care Orders: Orders NM gastric emptying study Today R68.81 - Early satiety Medications: Changed From methylcellulose (laxative) (Citrucel) 500 mg PO TID 90 tabs 5RF To methylcellulose (laxative) (Citrucel) 1,000 mg (2 x 500 mg) PO DAILY 180 tabs 5RF Discontinued calcium polycarbophil (Fiber Laxative (calcium polycarbophil)) Discontinued Reason: Doctor's Order 1,250 mg (2 x 625 mg) PO DAILY 30 days 60 tabs 3RF Coding Level of Care Code Est Pt Level 4 (62142) Complex EM visit Add On G2211 Diagnoses Gastroesophageal reflux disease, unspecified whether esophagitis present K21.9 Esophagitis presence: esophagitis presence not specified Chronic constipation K59.09 Postprandial epigastric pain R10.13 Postprandial abdominal bloating R14.0 Time Spent (min) 35 Comment 25 minutes spent with patient and additional 10 minutes spent reviewing her records
[2024-10-10 08:30] VITALS: BP 126/71; PULSE 94; O2SAT 94; BMI 35.5
== END 2024-10-10 09:10 | disposition home or self-care (01) ==
PROVIDERS: Visit Provider Nurse Practitioner Family
DX: K21.9 Gastro-esophageal reflux disease without esophagitis (principal); K59.09 Other constipation; R10.13 Epigastric pain; R14.0 Abdominal distension (gaseous)
CPT/HCPCS: 99214; G2211

== ENCOUNTER → 2024-10-10 08:22 | Outpatient (BNVA) | payer OTHER, SELFPAY | PROVIDERS: Visit Provider Nurse Practitioner Family | DX: K21.9 Gastro-esophageal reflux disease without esophagitis (principal); K59.09 Other constipation; R10.13 Epigastric pain; R14.0 Abdominal distension (gaseous) | CPT/HCPCS: 99212 ==

== ENCOUNTER → 2024-11-15 08:12 | Outpatient (REF) | payer OTHER, SELFPAY ==
--- NOTE | ~2024-11-15 | NM_ITS ---
EXAMINATION: NM RADIONUCLIDE SOLID FOOD GASTRIC EMPTYING 4-HOUR STUDY CLINICAL INFORMATION: Early satiety, GERD COMPARISON: None TECHNIQUE: A standard meal consisting of 4 oz of Egg Beaters brand tagged with 1.0 microcuries Tc-99m Sulfur Colloid, 8 oz water and 2 slices of toast with jelly was administered orally to the patient. Images were obtained using a dual head gamma camera in the anterior and posterior projections over of the stomach immediately post ingestion and at hourly intervals up to 4 hours post ingestion. The anterior and posterior counts at each time interval were averaged using the geometric mean and expressed as percentage of the immediate post ingestion counts. FINDINGS: There is good visualization of activity in the stomach immediately post ingestion. As the study progresses, there is good clearance of activity from the stomach and visualization of progressively increasing small bowel activity. By the end of the study, there is almost no retention noted in the stomach. Retention in the stomach at each time interval was: 1 hour 85% (normal 37%-90%) 2 hours 63% (normal 30%-60%) 3 hours 25% 4 hours 6% (normal 0%-10%) NM/FL gastric emptying study IMPRESSION: 4-hour solid food gastric emptying study with borderline at 2 hours but overall within normal limits. For solid meal, rapid gastric emptying is less than 30% at 60 minutes. Delayed gastric emptying criteria is more than 60% remaining at 120 minutes or more than 10% at 240 minutes. The 4-hour value is the best discriminator of a normal or abnormal result). Gastric emptying study grading per JNMT Consensus Recommendations in 2008 (https://tech.snmjournals.org/content/36/44) Grade 1 (mild retention): 11-20% at 4h Grade 2 (moderate retention): 21-35% at 4h Grade 3 (severe retention): 36-50% at 4h Grade 4 (very severe retention): >50% retention at 4h Electronically signed by: Yves Fagan MD 11/15/2024 01:26 PM EDT
--- OUTSIDE RECORDS SUMMARY | 2024-11-15 08:35 | XMS_ITS ---
Author Name [facility] Organization Unknown Care Team Organization Name Specialty Phone Email Start Date End Da te [facility] TERRY QUINTANILLA Primary Care 08/02/2022 11/14/19 24
--- OUTSIDE RECORDS SUMMARY | 2024-11-15 08:35 | XMS_ITS | Clinical Summary ---
Author Organization [facility] Address [address] [place] [address] Care Team Providers Care Acetylene Gas Compressor Name Role Phone Isaac Raphael MD Primary [...] age to complete this topic Care Teams Acetylene Gas Compressor Relationship Specialty Start Date End Date Isaac Raphael MD PCP - General Internal Medicine 12/28/19
--- OUTSIDE RECORDS SUMMARY | 2024-11-15 08:35 | XMS_ITS | Clinical Summary ---
Author Organization [facility] Facility Address [address] [place] [address], [place] [address] Care Team Providers Care Centrifugal Casting Machine Operator Name Role Phone Isaac Raphael MD Primary Care Provider [phone] Allergies Active Allergy Reactions Criticality Noted Date [...] 1 - PCV) 023 Insurance Care Teams Centrifugal Casting Machine Operator Relationship Specialty Start Date End Date Isaac Raphael MD [address] [address] PCP - General Internal Medicine 8/2/21
--- OUTSIDE RECORDS SUMMARY | 2024-11-15 08:35 | XMS_ITS | Clinical Summary ---
Author Organization 175 [facility] Address [address] [place] [address] Phone Care Team Providers Care [employer] Name Role Phone Natalia Irizarry Primary Care Provider + Allergies Active Allergy Reactions Criticality Noted Date Comments Influenza Virus Vaccines Hives,Rash 12/28/2012 Iodinated Contrast Media Nausea And Vomiting Cat scan dye Morphine Hallucinations High 01/08/2022 Oxycodone-Acetaminophen Hallucinations High 01/09/20 22 Medications albuterol 2.5 mg /3 mL (0.083 %) nebulizer solution Inhale 3 mL (2.5 mg total) by mouth every 6 (six) hours if needed for wheezing. 0 Active clotrimazole-beta methasone (LOTRISONE) 1-0.05 % cream Apply topically 2 (two) times a day. APPLY SPARINGLY TO AFFECTED AREA FOR UP TO 2 WEEKS 3 Active multivit-min/iron /folic acid/K (ADULTS MULTIVITAMIN ORAL) Take by mouth. Activ e nebulizer and compressor (MY MDI PORTABLE NEBULISER MISC) 1 Units by Not Applicable route 2 (two) times a day if needed. SOB 0 Active albuterol HFA (PROAIR HFA ; PROVENTIL HFA ; VENTOLIN HFA) 90 mcg/actuation inhalerIndication s:Asthma, unspecified asthma severity, unspecified whether complicated, unspecified whether persistent Inhale 2 puffs by mouth every 6 (six) hours if needed for wheezing or shortness of breath. 6.7 g 11 4 Active fluticasone HFA (FLOVENT HFA) 110 mcg/actuation inhalerIndication s:Moderate persistent asthma without complication Inhale 2 puffs by mouth 2 (two) times a day. 1 each 1 4 Active budesonide (Pulmicort Flexhaler) 180 mcg/actuation inhaler Inhale 1 puff by mouth 2 (two) times a day. Rinse mouth with water after use to reduce aftertaste and incidence of candidiasis. Do not swallow. 1 each 4 03/09/20 25 Active diphenhydrAMINE (Banophen) 25 mg capsule Take 1 capsule (25 mg total) by mouth every 8 (eight) hours if needed for itching. 90 capsule 1 5 Active LORazepam (ATIVAN) 0.5 mg tabletIndications :Anxiety with flying Take 1 tablet by mouth 1 hour prior to flying as needed for anxiety max 1 mg per day 10 tablet 5 Active tirzepatide, weight loss, (Zepbound) 7.5 mg/0.5 mL injection Inject 0.5 mL (7.5 mg total) under the skin every 7 (seven) days. 3 mL 2 5 Active Laxative, bisacodyl, 5 mg EC tablet Take 2 tablets (10 mg total) by mouth 1 (one) time each day if needed. 5 Active esomeprazole (NexIUM) [address] capsule Take 1 capsule (40 mg total) by mouth 1 (one) time each day. 5 Active tiZANidine (ZANAFLEX) 4 mg tablet TAKE 1 TABLET BY MOUTH AT BEDTIME NEEDED FOR MUSCLE SPASMS. 90 tablet 1 5 Active cetirizine (ZyrTEC) 10 mg tabletIndications :Allergic contact dermatitis, unspecified cause TAKE 1 TABLET BY MOUTH DAILY NEEDED FOR ALLERGIES. 90 tablet 1 5 Active magnesium 250 mg tabletIndications :Hypomagnesemia Take 1 tablet by mouth at bedtime. 90 tablet 1 5 Active Active Problems Problem Noted Date Diagnosed [...] Encounters Date Type Department Care Team Description 11/05/2024 9:45 AM EDT Office Visit Internal Medicine [address] [phone] Natalia Irizarry PA Neck pain on left side (Primary Dx); Mixed hyperlipidemia; Hypomagnesemia 10/25/2024 Telephone Internal Medicine [address] [phone] Delores Jacobs [place] Appointment 10/09/2024 Telephone Internal Medicine [address] [phone] Delores Jacobs MA Med Refill 09/19/2024 6:57 AM EDT - 09/19/2024 11:59 PM EDT Hospital [facility] [address] [place] [address] Routine physical examination Discharge Disposition: Home or Self Care 2024 Telephone Internal Medicine - [place] [address] [phone] Natalia Irizarry PA 09/05/2024 Telephone Internal Medicine [facility] [address] [phone] Natalia Irizarry PA Prior Auth 09/04/2024 5:54 PM EDT - 09/04/2024 11:59 PM EDT Hospital Encounter [facility] Xray [address] [place] [address] Acute pain of both knees Discharge Disposition: Home or Self Care 09/03/2024 Telephone Internal Medicine [address] [phone] Delores Jacobs MA Fall 08/28/2024 10:00 AM EDT Office Visit Internal Medicine [address] [address] Natalia Irizarry PA Routine physical examination (Primary Dx); Obesity (BMI 30-39.9); Mixed hyperlipidemia; Hypomagnesemia 08/27/2024 Telephone Internal Medicine [address] [phone] Delores Jacobs MA 08/22/2024 Telephone Internal Medicine [facility] [address] [phone] Delores Jacobs MA from Last 3 Months Immunizations Name Administration [...] CHOLECYSTECTOMY 08/27/2011 PROCEDURE: LAPAROSCOPY, CHOLECYSTECTOMY SECTION PROCEDURE: RI DELIVERY ONLY BELT ABDOMINOPLASTY PROCEDURE: HISTORICAL TUMMY TUCK APPENDECTOMY PROCEDURE: HISTORICAL APPENDECTOMY TUBAL LIGATION PROCEDURE: HISTORICAL TUBAL LIGATION ESOPHAGOGASTRODUODENOSCOPY 12/02/2011 PROCEDURE: RI ESOPHAGOGASTRODUODENOSCOPY TRANSORAL DIAGNOSTIC; COMMENT: mild distal esophagitis (erythema) SHOULDER SURGERY Right PROCEDURE: HISTORICAL SHOULDER SURGERY; COMMENT: 2019 Dr. Guo, right shoulder arthroscopy HYSTERECTOMY Medical History Medical History Date Comments GERD [...] = 0.6 oz pur e alcohol) Comments No Sex and Gender Information Value Date Recorded Sex Assigned at Not on file Legal Sex Female 5:21 AM EST Gender Identity Not on file Sexual Orientation Not on file Obstetrics History Para Term AB IAB SAB Ectopic Multiple Livin g Live Births 2 Last Filed Vital Signs Vital Sign Reading Time Taken Comments Blood Pressure 138/92 11/05/2024 9:37 AM EDT Pulse 75 02/20/2024 9:22 AM EST Temperature 36.6 C (97.8 F) 11/05/2024 9:37 AM EDT Respiratory Rate - - Oxygen Saturation - - Inhaled Oxygen Concentration - - Weight 94.3 kg (208 lb) 11/05/2024 9:37 AM EDT Height 160 cm (5' 3 ) 11/05/2024 9:37 AM EDT Body Mass Index 36.85 11/05/2024 9:37 AM EDT Plan of Treatment Upcoming Encounters Date Type Department Care Team (Late st Contact Info) Description 12/07/2024 12:30 PM EDT Evaluation [facility] [place] [address] [address] Zuleima Dodge, PT 01/29/2025 9:45 AM EST Office Visit Pulmonolgy - [place] [address] [phone] Rafita Sigala MD [address] [address] 02/28/2025 9:45 AM EST Office Visit Internal Medicine - [place] [address] [phone] Natalia Irizarry PA 175 [facility] [address] [place] [address] Health Maintenance Due Date Last Done Comments Pneumococcal Vaccine: 50+ Years (1 of 2 - PCV) 09/13/1991 Social Influencers of Health Screening 03/06/2022 DTaP,Tdap,and Td Vaccines (3 - Td or Tdap) 12/28/2022 12/28/2012, 10/21/2008 Zoster Vaccines (3 of 3) 03/04/2023 01/07/2023, 07/ COVID-19 Vaccine ( season) 2023 Depression Screening 03/28/2024 Influenza Vaccine (#1) 2024 02/13/2008 Cervical Cancer Screening: HPV 02/23/2026 02/23/2021 Breast Cancer Screening 09/19/2026 09/20/19, 01/25/2023, 06/08/2021, Additional history exists Cholesterol Screening (Lipid Panel) 09/10/2029 09/10/2024, 09/10/2024, 02/20/2024, Additional history exists Colorectal Cancer Screening: Colonoscopy 06/12/2030 06/12/2020 Hepatitis A Vaccines Aged Out 12/23/2008, 10/21/2008, 01/19/2005 No longer eligible based on patient's age to complete this topic Hepatitis B Vaccines Completed 12/23/2008, 10/21/2008, 01/19/2005 Hepatitis C Screening Completed 01/18/2014 HIV Screening [...] age to complete this topic Meningococcal B Vaccine Aged Out No l onger eligible based on patient's age to complete this topic RSV Immunization Patients Under 20 months Aged Out No longer eligible based on patient's age to complete this topic Varicella Vaccines Aged Out No longer eligible based on patient's age to complete this topic Procedures Procedure Name Priority Date/Time Associated Diagnosis Comments MG MAMMO DIGITAL SCREENING W JONY BILAT Routine 09/19/2024 7:14 AM EDT Routine physical examination LDL CHOLESTEROL, DIRECT Routine 09/10/2024 8:33 AM EDT Mixed hyperlipidemia MAGNESIUM Routine 09/10/2024 8:33 AM EDT Hypomagnesemia LIPID PANEL WITH REFLEX TO DIRECT LDL Routine 09/10/2024 8:33 AM EDT Mixed hyperlipidemia XR KNEE 4+ VIEWS BILAT Routine 09/04/2024 6:06 PM EDT Acute pain of both knees HM HPV Routine 02/23/2021 HIV SCREENING Routine 08/13/2020 COLONOSCOPY Routine 06/12/2020 HEPATITIS C SCREENING Routine 01/18/2014 from Last 3 Months or Most Recently Relevant to Health Maintenance Results * MG Mammo Digital Screening w Jony bilat (09/19/2024 7:14 AM EDT) Anatomical Region Laterality Modality Breast Bilateral Mammography 09/19/2024 10:5 6 AM EDT Impressions 09/19/2024 10:57 AM EDT No evidence of breast malignancy. BI-RADS CATEGORY: 1 - NEGATIVE RECOMMENDATION: Screening bilateral mammogram is recommended in 1 year. Mammo Location: [facility], [address] [place] [address], [id number], . -------- FINAL REPORT -------- Dictated By: Ellen Estes Dictated Date: 09/19/2024 10:56 ET Assigned Physician: Ellen Estes Reviewed and Electronically Signed By: Ellen Estes Signed Date: 09/19/2024 10:57 ET Workstation ID: [id number] Transcribed By: Self Edit Transcribed Date: 09/19/2024 10:56 ET Narrative 09/19/2024 10:57 AM EDT CLINICAL: 54 years old, Female, routine annual exam. COMPARISON: 01/25/2023, 01/15/2022, 06/08/2021 and 10/01/2019 TECHNIQUE: Bilateral MLO and CC views were obtained digitally with 3-D mammogram (digital breast tomosynthesis). Computer-aided detection was utilized in evaluation of this exam (CAD). FINDINGS: There is no evidence of suspicious mass or architectural distortion. No worrisome calcifications are evident. There has been no significant change from prior exam(s). BREAST DENSITY: A - The breasts are almost entirely fatty. Procedure Note Ellen Estes MD - 09/19/2024 CLINICAL: 54 years old, Female, routine annual exam. COMPARISON: 01/25/2023, 01/15/2022, 06/08/2021 and 10/01/2019 TECHNIQUE: Bilateral MLO and CC views were obtained digitally with 3-Dmammogram (digital breast tomosynthesis). Computer-aided detection wasutilized in evaluation of this exam (CAD). FINDINGS: There is no evidence of suspicious mass or architectural distortion. Noworrisome calcifications are evident. There has been no significantchange from prior exam(s). BREAST DENSITY: A - The breasts are almost entirely fatty. IMPRESSION: No evidence of breast malignancy. BI-RADS CATEGORY: 1 - NEGATIVE RECOMMENDATION: Screening bilateral mammogram is recommended in 1 year. Mammo Location: [facility], [address] [place] [address], [id number], . -------- FINAL REPORT -------- Dictated By: Ellen Estes Dictated Date: 09/19/2024 10:56 ET Assigned Physician: Ellen Estes Reviewed and Electronically Signed By: Ellen Estes Signed Date: 09/19/2024 10:57 ET Workstation ID: [id number] Transcribed By: Self Edit Transcribed Date: 09/19/2024 10:56 ET Natalia DURAND IM BI PROCEDURES Final Result * (ABNORMAL) Lipid panel with reflex to direct LDL (09/10/2024 8:33 AM EDT) Cholesterol 208(H) 0 - 200 mg/dL LAB CHEMISTRY METHOD 09/10/2024 3:18 PM EDT [facility] Triglycerides 522(H) 0 - 150 mg/dL LAB CHEMISTRY METHOD 09/10/2024 3:18 PM EDT [facility] HDL 29(L) >=40 mg/dL LAB CHEMISTRY METHOD 09/10/2024 3:18 PM EDT [facility] LDL Calculated LAB CHEMISTRY METHOD 09/10/2024 3:18 PM EDT [facility] Comment: Unable to calculate when triglycerides >400 mg/dL. Triglyceride value is >= 500. Calculated LDL is not meaningful. Direct LDL has been added. VLDL Cholesterol [place] LAB CHEMISTRY METHOD 09/10/2024 3:18 PM EDT [facility] Comment:Unable to calculate when triglycerides >400 mg/dL. Non HDL Chol. (LDL+VLDL) LAB CHEMISTRY METHOD 09/10/2024 3:18 PM EDT [facility] Comment:Unable to calculate when triglycerides >400 mg/dL. Chol/HDL Ratio 7.2(H) 0.0 - 4.4 LAB CHEMISTRY METHOD 09/10/2024 3:18 PM EDT [facility] Blood Venous blood specimen / Unknown Venipuncture / Unknown 09/10/2024 8:33 AM EDT 09/10/2024 8:33 AM EDT us Natalia DURAND LAB BLOOD ORDERABLES Fin al Result [facility] [address] [place] [address], * (ABNORMAL) Magnesium (09/10/2024 8:33 AM EDT) Magnesium 1.8(L) 1.9 - 2.6 mg/dL LAB CHEMISTRY METHOD 09/10/2024 3:15 PM EDT [facility] Blood Venous blood specimen / Unknown Venipuncture / Unknown 09/10/2024 8:33 AM EDT 09/10/2024 8:33 AM EDT us Natalia DURAND LAB BLOOD ORDERABLES Fin al Result Performing Organization Address [facility] Co de Phone Number [facility] [address] [place] [address], * (ABNORMAL) LDL cholesterol, direct (09/10/2024 8:33 AM EDT) LDL Direct 125(H) <=100 mg/dL LAB CHEMISTRY METHOD 09/10/2024 3:29 PM EDT [facility] Blood Venous blood specimen / Unknown Venipuncture / Unknown 09/10/2024 8:33 AM EDT 09/10/2024 8:33 AM EDT Natalia DURAND LAB BLOOD ORDERABLES Fin al Result Performing Organization Address [facility] de Phone Number [facility] [address] [place] [address], [place] [phone] * XR Knee 4+ Views bilat (09/04/2024 6:06 PM EDT) Anatomical Region Laterality Modality Lower Extremities, Knee Bilateral Radiogra phic Imaging 09/05/2024 2:27 PM EDT Impressions 09/05/2024 2:33 PM EDT Normal exam. -------- FINAL REPORT -------- Dictated By: Jordan Martin Dictated Date: 09/05/2024 14:27 ET Assigned Physician: Jordan Martin Reviewed and Electronically Signed By: Jordan Martin Signed Date: 09/05/2024 14:33 ET Workstation ID: [id number] Transcribed By: Self Edit Transcribed Date: 09/05/2024 14:27 ET Narrative 09/05/2024 2:33 PM EDT PROCEDURE: Radiographs of both knees. HISTORY: teddy knee pain s/p fall 09/02/24. COMPARISON: None. FINDINGS: Bony mineralization is normal. No fracture or malalignment. No erosion or significant degenerative change. Soft tissues are normal. No joint effusion. Procedure Note Jordan Martin MD - 09/05/2024 PROCEDURE: Radiographs of both knees. HISTORY: teddy knee pain s/p fall 09/02/24. COMPARISON: None. FINDINGS: Bony mineralization is normal. No fracture or malalignment. No erosionor significant degenerative change. Soft tissues are normal. No jointeffusion. IMPRESSION: Normal exam. -------- FINAL REPORT -------- Dictated By: Jordan Martin Dictated Date: 09/05/2024 14:27 ET Assigned Physician: Jordan Martin Reviewed and Electronically Signed By: Jordan Martin Signed Date: 09/05/2024 14:33 ET Workstation ID: [id number] Transcribed By: Self Edit Transcribed Date: 09/05/2024 14:27 ET Result [facility] Natalia DURAND IMG XR PROCEDURES Final Result * Cervical Cancer Screening: HPV (02/23/2021) [facility] Cervical Cancer Screening: HPV positive, abstracted [facility] Provider HEALTH MAINTENANCE Final Result * HIV Screening (08/13/2020) [facility] HIV Screening abstracted Result [facility] Provider HEALTH MAINTENANCE Final Result * Colonoscopy (06/12/2020) [facility] Colonoscopy no interpretation , abstracted Anatomical Region Laterality Modality Other Result [facility] Provider HEALTH MAINTENANCE Final Result * Hepatitis C Screening (01/18/2014) [facility] Hepatitis C Screening abstracted [facility] Provider HEALTH MAINTENANCE Final Result from Last 3 Months or Most Recently Relevant to Health Maintenance Insurance [facility] Care Teams [employer] Relationship Specialty Start [place] [address] [place] [id number] PCP - General 04/20/23
== END ==
LOC: HO.NUCMED 08:12
PROVIDERS: Visit Provider Nurse Practitioner Family
DX: R68.81 Early satiety (principal)
CPT/HCPCS: 78264; A9541

== ENCOUNTER → 2024-11-15 08:13 | Outpatient (BNV) | payer OTHER, SELFPAY | PROVIDERS: Visit Provider Radiology Diagnostic Radiology | DX: K21.9 Gastro-esophageal reflux disease without esophagitis (principal) | CPT/HCPCS: 78264 ==

== ENCOUNTER 2025-01-28 08:16 | Outpatient (AMB) | payer OTHER, SELFPAY ==
--- NOTE | 2025-01-28 08:24 | MHC.OFFVIS ---
Vital Signs 01/28/25 08:31 Height 5 ft 4 in Weight 199 lb BMI 34.2 BP 118/68 Blood Pressure Location Rt brachial Position Sitting Pulse 82 Pulse Source Pulse Oximeter Pulse Oximetry (%) 99 Oxygen Delivery Method Room Air Intake Visit Reasons: 4m gerd Intake Note: ESTABLISHED PATIENT for GERD mgmt. Chief Complaint; C.O. episodes of severe constipation despite current therapies. Pt states that she took colace, bisacodyl, and senna w/o relief. Pt has since had relief from her most recent episode but did experience severe abd pain during the episode. GERD is OK at this time. 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 She will increase fiber intake and take fiber supplement in the morning. She will still take with Dulcolax in the evening to help her empty her bowels completely. Avoid dietary triggers late at snacking. Staying upright for minimal 3 hours after meals discussed with patient. Patient will increase fluid intake and activity to promote better bowel motility periods will send her for gastric emptying study to rule out gastroparesis, although patient is taking Zepbound and patient might be feeling this way due to the medication. Follow-up in 4 months, sooner on as needed basis. She is agreeable to this plan and verbalizes understanding of instructions. She was given the opportunity to ask questions and all questions answered. ? Thank you for allowing me to participate in her care Orders NM gastric emptying study Today R68.81 Changed Changed From methylcellulose (laxative) (Citrucel) 500 mg PO TID 90 tabs 5RF Changed To methylcellulose (laxative) (Citrucel) 1,000 mg (2 x 500 mg) PO DAILY 180 tabs 5RF Discontinued calcium polycarbophil (Fiber Laxative (calcium polycarbophil)) Discontinued Reason: Doctor's Order 1,250 mg (2 x 625 mg) PO DAILY 30 days 60 tabs 3RF TODAY'S VISIT Patient is here today for follow-up. Patient reports that she has been doing fairly well. Patient is taking Nexium in the morning in her symptoms of acid reflux has suppressed. She no longer is having reflux or indigestion. She is only taking famotidine as needed. One episode of epigastric burning and reflux in the evening, symptoms went away with Pepcid. Patient started Zepbound for weight loss. She has been having worsening constipation. Gastric emptying study was normal. Patient reports she was taking stool softener, Dulcolax and was having trouble moving her bowels about 2 weeks ago. Patient purchased smooth move tea, however she did not get any positive results with that. Patient he is referred today to have a bowel movement. Since the last time she had a bowel movement no BM yet. It has been over a week. [facility] Medical History Asthma Chronic constipation Diverticulosis large intestine w/o perforation or abscess w/o bleeding Surgical History Hx of shoulder surgery (~02/25/20) Hx of abdominoplasty History of hysterectomy Hx of cholecystectomy History of appendectomy History of Hx of endoscopy Family History Father No problems noted. 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 Review of Systems Const Denies weight gain and Denies weight loss ENT Reports no additional complaints, Denies dysphagia and Denies odynophagia Card Reports no additional complaints Resp Reports no additional complaints GI Reports abdominal pain, Denies belching, Denies melena, Reports bloating, Denies change in bowel habits, Reports constipation, Denies dysphagia, Denies excessive flatus, Denies dyspepsia, Reports heartburn, Denies diarrhea, Reports loose stools, Denies nausea, Denies odynophagia and Denies vomiting Reports no additional complaints Musc Reports no additional complaints Neuro Reports no additional complaints Psych Reports no additional complaints Endo Reports no additional complaints Physical Exam Vital Signs: Last Vital Signs Pulse 82 01/28/25 08:31 BP 118/68 01/28/25 08:31 Pulse Ox 99 01/28/25 08:31 Oxygen Delivery Method Room Air 01/28/25 08:31 BMI result Body Mass Index 34.2 Results Reviewed Results Reviewed: GASTRIC EMPTYING STUDY 11/15/2024 Retention in the stomach at each time interval was: 1 hour 85% (normal 37%-90%) 2 hours 63% (normal 30%-60%) 3 hours 25% 4 hours 6% (normal 0%-10%) NM/NM gastric emptying study IMPRESSION: 4-hour solid food gastric emptying study with borderline at 2 hours but overall within normal limits. Assessment & Plan Assessment & Plan (1) Diverticulosis large intestine w/o perforation or abscess w/o bleeding: Code(s): K57.30 - Diverticulosis of large intestine without perforation or abscess without bleeding Category: Medical (2) Chronic constipation: Code(s): K59.09 - Other constipation Category: Medical (3) Constipation: Code(s): K59.00 - Constipation, unspecified Qualifiers: Constipation type: slow transit constipation Qualified Code(s): K59.01 - Slow transit constipation Plan Patient will continue taking Nexium in the morning and famotidine as needed at bedtime. Avoid dietary triggers and late night snacking. Staying upright for minimum 3 hours after meals discussed with patient. Patient will start taking Linzess daily. She will call us in 2 weeks if medication will not be effective. Patient will follow-up in our office in 4 months. She will call us if she will have any GI concerning symptoms. Patient is agreeable to this plan and verbalizes understanding of instructions. She was given the opportunity to ask questions and all questions answered. Thank you for allowing me to participate in her care Medications: New linaclotide (Linzess) 145 mcg PO DAILY 30 caps 4RF K59.04 - Chronic idiopathic constipation Refilled famotidine 20 mg PO BEDTIME 90 tabs 1RF K21.9 - Gastro-esophageal reflux disease without esophagitis esomeprazole magnesium 40 mg PO DAILY 90 caps 2RF K21.9 - Gastro-esophageal reflux disease without esophagitis Coding Level of Care Code Est Pt Level 4 (50330) Complex EM visit Add On G2211 Diagnoses Diverticulosis large intestine w/o perforation or abscess w/o bleeding K57.30 Chronic constipation K59.09 Slow transit constipation K59.01 Constipation type: slow transit constipation Time Spent (min) 35 Comment 25 minutes spent with patient and additional 10 minutes spent reviewing her records
--- OUTSIDE RECORDS SUMMARY | 2025-01-28 08:30 | XMS_ITS | Clinical Summary ---
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
--- OUTSIDE RECORDS SUMMARY | 2025-01-28 08:30 | XMS_ITS | Clinical Summary ---
Author Organization [facility] Address [address] [place] [id number] Care Team Providers Care Plodding Operator Name Role Phone Isaac Raphael MD [...] age to complete this topic Care Teams Plodding Operator Relationship Specialty Start Date End Date Isaac Raphael MD PCP - General Internal Medicine 12/28/19
[2025-01-28 08:31] VITALS: BP 118/68; PULSE 82; O2SAT 99; BMI 34.2
== END 2025-01-28 08:56 | disposition home or self-care (01) ==
LOC: HO.HGI 08:17
PROVIDERS: Visit Provider Nurse Practitioner Family
DX: K57.30 Diverticulosis of large intestine without perforation or abscess without bleeding (principal); K59.09 Other constipation; K59.01 Slow transit constipation
CPT/HCPCS: 99214

== ENCOUNTER → 2025-01-28 08:16 | Outpatient (BNVA) | payer OTHER, SELFPAY | PROVIDERS: Visit Provider Nurse Practitioner Family | DX: K21.9 Gastro-esophageal reflux disease without esophagitis (principal); K57.30 Diverticulosis of large intestine without perforation or abscess without bleeding; K59.04 Chronic idiopathic constipation; K59.01 Slow transit constipation | CPT/HCPCS: 99212 ==